=== PATIENT | female | born 1950 | race Caucasian/White ===

== ENCOUNTER → 2021-08-26 09:11 | Outpatient (CLI) | payer MEDICARE, SELFPAY ==
--- NOTE | ~2021-08-26 | MM_ITS ---
EXAMINATION: MM screening bryanna BI w parag HISTORY: Screening mammogram TECHNIQUE: Craniocaudal and mediolateral oblique 3-D tomosynthesis images were obtained and synthetic 2-D images were generated. CAD analysis was submitted and interpreted. COMPARISON: 05/11/2011 BREAST PARENCHYMAL COMPOSITION: There are scattered areas of fibroglandular density. FINDINGS: Scattered benign-appearing calcifications are present. There is no evidence of suspicious m ass, calcification, or architectural distortion to suggest malignancy in either breast. There has bee n no suspicious interval change. IMPRESSION: 1. No mammographic evidence of malignancy. 2. Recommend routine screening mammography in one year. BI-RADS Category 1: Negative Reviewed, dictated and finalized at location A. LIBRARIAN
--- NOTE | ~2021-08-26 | US_ITS ---
EXAMINATION: US abdomen complete EXAM DATE: 08/26/2021 09:43 INDICATION: Unspecified abdominal pain. TECHNIQUE: Multiple grayscale and Doppler images of the complete abdomen were obtained (by a technolo alix who performed the scan) and subsequently reviewed. Comparison is made to prior examination from 04/10/2012. FINDINGS: The abdominal aorta is normal in caliber. Visualized portion IVC is patent. The pancreatic head a nd body are normal in appearance. The pancreatic tail is not visualized. The liver has normal echogenicity and contour. There are no focal liver lesions identified. There is no evidence of intrahepatic biliary duct dilation. Portal venous flow was seen in the hepatopedal , normal direction and has normal Doppler waveform. Common bile duct measures 4 mm, which is normal. The gallbladder fossa is unremarkable. Right kidney: There is normal contour and echogenicity. It measures 8.1 x 4.3 x 4.8 centimeters. T here are no focal renal lesions identified. There is no hydronephrosis. Left kidney: There is normal contour and echogenicity. It measures 8.6 x 5.4 x 4.5 centimeters. Th ere are no focal renal lesions identified. There is no hydronephrosis. The spleen measures 9.6 centimeters and is morphologically normal. IMPRESSION: 1. Unremarkable complete abdominal ultrasound exam. Reviewed, dictated and finalized at location B. TICS LOADER
== END ==
PROVIDERS: PCP Physician Assistant; Visit Provider Physician Assistant
DX: Z12.31 Encounter for screening mammogram for malignant neoplasm of breast (principal); R10.9 Unspecified abdominal pain
CPT/HCPCS: 76700; 77063; 77067

== ENCOUNTER 2021-09-15 11:48 | Inpatient (IN) | payer MEDICARE, SELFPAY ==
[2021-09-15] VITALS (41 sets, daily range): BP systolic 136–163; BP diastolic 78–100; PULSE 75–95; RESP 16–29; TEMP 36.4–36.7; O2SAT 90–100; BMI 31.8
--- NOTE | ~2021-09-15 | CT_ITS ---
EXAMINATION: CTA chest PE protocol DATE: 09/15/2021 13:48 INDICATION: Shortness of breath, COVID 19 positive TECHNIQUE: Computed tomography angiography (CTA) of the chest was performed with 100 mL Omnipaque-350 intravenous contrast timed to evaluate the pulmonary arteries. Coronal maximum intensity projection 3D-reconstructions were created by the technologist. The dose-length product (DLP) was 369.57 mGy-cm. Automated exposure control and iterative reconstruction technique were employed. COMPARISON: None. FINDINGS: The pulmonary arteries are well-opacified. No pulmonary embolism is identified. There are d iffuse groundglass opacities throughout all lung zones. No pleural effusion or pneumothorax is identi fied. No pathologically enlarged thoracic lymph nodes are identified. The heart size is normal. Calci fied mediastinal lymph nodes are consistent with old granulomatous disease. There is moderate thoraci c spondylosis. The gallbladder is surgically absent. There is a 1.5 cm soft tissue density mass of th e left adrenal gland. IMPRESSION: 1. No pulmonary embolus identified. 2. Findings consistent with COVID 19 pneumonia. 3. 1.5 cm left adrenal mass, likely an adenoma in the absence of known malignancy. Consider follow-up adrenal CT in 12 months. Reviewed, dictated and finalized at location A. PERSON IMPRESSION: 1. No pulmonary embolus identified. 2. Findings consistent with COVID 19 pneumonia. 3. 1.5 cm left adrenal mass, likely an adenoma in the absence of known malignan cy. Consider follow-up adrenal CT in 12 months.
--- NOTE | ~2021-09-15 | XR_ITS ---
EXAMINATION: XR chest 1V portable INDICATION: Shortness of breath, COVID 19 TECHNIQUE: Portable AP chest at 1225 hours COMPARISON: 02/01/2005 FINDINGS: There are patchy airspace opacities throughout the lungs with a mid and lower lung zone pre dominance. The cardiomediastinal silhouette is normal. There is no pleural effusion or pneumothorax. The visualized osseous structures are unremarkable. IMPRESSION: 1. Patchy bilateral airspace opacities, likely pneumonia. Reviewed, dictated and finalized at location A. TER ELEMENT REPAIRER
--- NOTE | ~2021-09-15 | US_ITS ---
EXAMINATION: US venous doppler [facility] DATE: 09/15/2021 14:18 INDICATION: COVID positive with shortness of breath and elevated d-dimer TECHNIQUE: Grayscale ultrasound images without and with compression and Doppler ultrasound images of the bilateral lower extremity veins were obtained. COMPARISON: None. FINDINGS: The visualized portions of right common femoral vein, profunda (deep) femoral vein, femoral vein, pop liteal vein, posterior tibial veins, peroneal veins, gastrocnemius vein and greater saphenous vein ou tflow are patent. The visualized portions of left common femoral vein, profunda femoral vein, femoral vein, popliteal v ein, posterior tibial veins, peroneal veins, gastrocnemius vein and greater saphenous vein outflow ar e patent. IMPRESSION: 1. No deep venous thrombosis in either lower limb. Reviewed, dictated and finalized at location B. L BONDING PRESS OPERATOR
[2021-09-15 11:56] LABS: Glucose Point of Care 468 mg/dl (65-105)
--- NOTE | 2021-09-15 12:15 | ECG_ITS ---
Measurements Intervals [place] Rate: 86 P: [place]: 0 QRS: -47 QRSD: 148 T: 105 QT: 411 QTc: 493 Interpretive Statements SINUS RHYTHM LEFT AXIS DEVIATION LEFT BUNDLE BRANCH BLOCK ABNORMAL ECG Electronically Signed On 09-15-2021 13:13:21 AIR OPERATIONS MANAGER by Glen Hollis D.O.
--- NOTE | 2021-09-15 13:00 | ED.SOB ---
HPI - SOB/Dyspnea General Chief Complaint: Shortness of Breath/Dyspnea <Heather Nguyen PA-C - Last Filed: 09/15/21 16:44> Stated Complaint: CP <Heather Nguyen PA-C - Last Filed: 09/15/21 16:44> Time Seen by Provider: 09/15/21 12:13 <Heather Nguyen PA-C - Last Filed: 09/15/21 16:44> Source: patient <Heather Nguyen PA-C - Last Filed: 09/15/21 16:44> Mode of arrival: EMS <Heather Nguyen PA-C - Last Filed: 09/15/21 16:44> Limitations: no limitations <Heather Nguyen PA-C - Last Filed: 09/15/21 16:44> History of Present Illness HPI Narrative: This is a 71 year old female that presents to the ER for shortness of breath ongoing over the last couple of days. Associated with cough. Reports she is currently Covid positive. She has had symptoms for about 2 weeks. Denies fever, chest pain, or lower extremity edema. <Heather Nguyen PA-C - Last Filed: 09/15/21 16:44> Related Data Allergies/Adverse Reactions: Allergies Allergy/AdvReac Type Severity Reaction Status Date / Time Sulfa (Sulfonamide Allergy Unknown Verified 09/10/15 07:12 Antibiotics) SULFAMETHOXAZOLE (Generic Allergy Unknown Y Uncoded 08/05/19 13:43 Allergy) <Heather Nguyen PA-C - Last Filed: 09/15/21 16:44> Review of Systems Review of Systems: CONSTITUTIONAL: Denies fever, CARDIOVASCULAR: Denies chest pain, or edema. RESPIRATORY: Reports cough and dyspnea. <Heather Nguyen PA-C - Last Filed: 09/15/21 16:44> All systems reviewed & are unremarkable except as noted in HPI and below <Heather Nguyen PA-C - Last Filed: 09/15/21 16:44> PMFSH Past Medical History Medical History: Medical History (Updated 09/15/21 @ 16:43 by Heather Nguyen PA-C) History of diabetes mellitus History of hypertension <Heather Nguyen PA-C - Last Filed: 09/15/21 16:44> Family History Family History: Family History (Updated 06/05/14 @ 07:13 by DOCTOR UNKNOWN) Sibling Carcinoma of colon Father Family history of heart disease in male family member before age 55 Grandparent Family history of heart disease in male family member before age 55 <Heather Nguyne PA-C - Last Filed: 09/15/21 16:44> Social History Social History: Social History Smoking status: Never smoker Alcohol intake: never <Heather Nguyen PA-C - Last Filed: 09/15/21 16:44> Exam Narrative: GENERAL: Well-appearing, well-nourished, and in no acute distress. HEAD: Normocephalic, atraumatic. EYES: EOMI. CHEST: Rales noted in the lung bases. No respiratory distress. No wheezes or rhonchi HEART: Regular rate and rhythm. No murmur heard. Normal peripheral pulses. EXTREMITIES: Normal range of motion. No edema. SKIN: Warm, dry, no rash. NEURO: No focal deficits. Alert and oriented x3. PSYCH: Normal mood and affect <Heather Nguyen PA-C - Last Filed: 09/15/21 16:44> Course AIRFIELD SERVICES OFFICER/PA Physician Supervision I did not see this patient but the care plan was discussed with me. I agree with the documentation as above <Chris Cantor MD - Last Filed: 09/15/21 17:38> Consultations Consultation #1: Spoke with hospitalist about patient and workup who accepts admission <Heather Nguyen PA-C - Last Filed: 09/15/21 16:44> Date: 09/15/21 <Heather Nguyen PA-C - Last Filed: 09/15/21 16:44> Vital Signs Vital signs: Vital Signs Pulse Rate 95 09/15/21 11:45 Respiratory Rate 22 H 09/15/21 11:45 Blood Pressure 163/100 H 09/15/21 11:45 Pulse Oximetry 92 09/15/21 11:45 Temperature 36.7 C 09/15/21 12:38 Pulse Rate 95 09/15/21 11:45 Respiratory Rate 22 H 09/15/21 11:45 Blood Pressure 163/100 H 09/15/21 11:45 Pulse Oximetry 92 09/15/21 11:45 <Heather Nguyen PA-C - Last Filed: 09/15/21 16:44> Vital Signs Pulse Rate 95 09/15/21 11:45 Respiratory Rate 22 H 09/15/21 11:45 Blood Pressure 163/100 H 09/15/21 11:45 Pulse Oximetry 92 09/15/21 11:45
[2021-09-15 13:02] LABS: Basophils Percent Auto 0.4 % (0.2-1.2); Eosinophils Absolute Auto 0.1 K/mm3 (0-0.3); Eosinophils Percent Auto 0.6 % (0-4.4); Hematocrit 40.3 % (37.0-47.0); Hemoglobin 14.3 g/dL (12.0-15.0); Immature Granulocyte Absolute 0.08 K/mm3 (0.00-0.031); Immature Granulocyte Percent A 0.9 % (0-0.5); Lymphocytes Absolute Auto 1.48 K/mm3 (0.9-3.2); Lymphocytes Percent Auto 17.3 % (18.3-44.2); Mean Corpuscular HGB Conc 35.5 g/dl (32-36); Mean Corpuscular Hemoglobin 31.7 pg (26-34); Mean Corpuscular Volume 89.4 fl (80-100); Mean Platelet Volume 11.6 fl (7.4-10.4); Monocytes Absolute Auto 0.8 K/mm3 (0.1-0.6); Monocytes Percent Auto 9.5 % (2.6-8.5); Neutrophils Absolute Auto 6.1 K/mm3 (1.3-6.7); Neutrophils Percent Auto 71.3 % (45.5-73.1); Platelet Count Result 185 k/mm3 (150-375); Red Blood Count 4.51 M/mm3 (4.2-5.4); Red Cell Distribution Width 11.5 % (11.5-14.5); White Blood Count 8.6 K/mm3 (4.5-10.0)
[2021-09-15 13:16] LABS: Lactic Acid Reflex 1.7 mmol/L (0.7-2.1)
[2021-09-15 13:18] LABS: Alanine Aminotransferase 41 U/L (4-35); Albumin Level 4.4 g/dL (3.5-5.1); Alkaline Phosphatase 162 U/L (38-126); Anion Gap 11 mmol/L (8-16); Aspartate Amino Transferase 51 U/L (14-36); Bilirubin,Total 1.1 mg/dL (0.2-1.3); Blood Urea Nitrogen 12 mg/dL (7-17); CRP 8.6 mg/dL (<1.0); Calcium 9.1 mg/dL (8.4-10.2); Carbon Dioxide 25 mmol/L (22-30); Chloride 91 mmol/L (98-107); Estimated Glomerular Filt Rate > 60; Glucose 489 mg/dL (65-110); INR 0.9; Lactate Dehydrogenase 1006 U/L (313-618); Potassium 3.6 mmol/L (3.4-5.0); Prothrombin Time 12.3 Seconds (11.1-14.7); Sodium 127 mmol/L (137-145)
[2021-09-15 13:19] LABS: Partial Thromboplastin Time 26.2 SECONDS (22.3-36.8)
[2021-09-15 13:22] LABS: D Dimer 1.19 ug/mL (<0.48)
[2021-09-15 13:30] LABS: Troponin I < 0.012 ng/mL (0.000-0.034)
[2021-09-15] MEDS: INSULIN HUMAN REGULAR (*BKC) 100 UNITS/ML 8 UNITS IV PUSH (17:18)
[2021-09-15] MEDS: DEXAMETHASONE 2 MG TABLET 6 MG PO (17:22)
[2021-09-15] MEDS: REMDESIVIR 200 MG/NS 250 ML 200 MG/250 ML BAG 250 MG IVPB (17:24)
--- NOTE | 2021-09-15 21:30 | PM.IMHP ---
H&P: HPI History of Present Illness Date/Time: 09/15/21 21:30 this is a 71-year-old female patient and she has had increasing shortness of breath ongoing for the last couple days. She has also had a cough. The patient has had these symptoms for approximately 2 weeks. The patient is currently on oxygen at 1 L per nasal cannula. She does not typically wear oxygen. She currently does not have any fever chills or in any lower extremity edema. Her blood sugars 489. Her ferritin is 617. Her AST is 51 ALT is 41 alkaline phosphatase 162 lactic dehydrogenase a 1006. Venous Dopplers no deep vein thrombosis identified. Findings consistent with COVID-19 pneumonia. 1.5 cm left adrenal mass, likely an adenoma in the absence of known malignancy. Consider follow-up adrenal CT in 12 months. I explained this to the patient and she agreed to follow-up in 12 months. Chest x-ray was read as patchy bilateral airspace opacities likely pneumonia. The patient was started on remdesivir and Decadron. She was given IV insulin in the emergency room. Her blood sugar was 489. Ferritin 617. AST 51. ALT 41. Alkaline phosphatase 162. Lactic dehydrogenase 1006. C reactive protein 8.6. Patient is being admitted to observation status on 09/15/2021. Chief Complaint: Shortness of breath Review of Systems Review of Systems: All systems reviewed & are unremarkable except as noted in HPI and below Constitutional: Constitutional: Reports as per HPI and Reports no additional constitutional complaints Eyes: Eyes: Reports as per HPI and Reports no additional eye complaints ENT: Reports system reviewed and no additional complaints, except as documented and Reports Normal hearing present Cardiovascular: Cardiovascular: Reports no additional cardiovascular complaints Respiratory: Respiratory: Reports no additional respiratory complaints and Reports no additional respiratory complaints Gastrointestinal: Gastrointestinal: Reports as per HPI and Reports no additional gastrointestinal complaints Musculoskeletal: Musculoskeletal: Reports no additional musculoskeletal complaints Integumentary/Breasts: Skin/Breast: Reports system reviewed and no additional complaints, except as docu and Reports as per HPI Neurologic: Reports system reviewed and no additional complaints, except as documented, Reports as per HPI and Reports Normal hearing present Psychiatric: Psychiatric: Reports no additional psychiatric complaints and Reports as per HPI Endocrine: Endocrine: Reports no additional endocrine complaints Hematologic/Lymphatic: Hematologic/Lymphatic: Reports no additional hematologic/lymphatic complaints Allergic/Immunologic: Allergic/Immunologic: Reports no additional allergic/immunologic complaints PMFSH Past Medical History Medical History (Updated 09/15/21 @ 21:41 by Toya Richardson NP) Diabetes mellitus History of diabetes mellitus History of hypertension Hypertension Surgical History Surgical History (Updated 09/15/21 @ 21:42 by Toya Richardson NP) H/O: hysterectomy Hx of cholecystectomy Family History Family History Sibling Carcinoma of colon Father Family history of heart disease in male family member before age 55 Grandparent Family history of heart disease in male family member before age 55 Social History Social History (Updated 09/15/21 @ 21:43 by Toya Richardson NP) Social History: The patient lives with her . Her daughter and son-in-law are currently living with them as well. Her is the durable power prosecuting attorney for healthcare. She has 3 children. 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 She is a lifelong nonsmoker. She does not use any alcohol marijuana illicit drugs. Code status full code Smoking status: Never smoker Alcohol intake: never Substance use: never Substance use type: marijuana Other substance usage details: medical marijuana card Spiritual
[2021-09-15 21:45] LABS: Glucose Point of Care 346 mg/dl (65-105)
[2021-09-15 21:45] LABS: Glucose Point of Care 404 mg/dl (65-105)
--- NOTE | 2021-09-15 22:03 | PC.NURSE ---
Re-checked pt's blood sugar prior to transfer to floor. FSBS 404. Toya Richardson TRANSLITERATOR was paged. Upon return call, Debra GREER verbally ordered 6 units SubQ Novolog and 10 units SubQ Lantus. Order was read back and verified. Per ZOEY Richardson, pt okay to go to the floor after insulin administration.
[2021-09-15] MEDS: INSULIN ASPART (*BKC) 100 UNITS/ML 6 UNITS SUB-Q (22:36)
[2021-09-15] MEDS: INSULIN GLARGINE (*BKC) 100 UNITS/ML 10 UNITS SUB-Q (22:39)
--- NOTE | 2021-09-15 22:48 | PC.NURSE ---
This patient, Raphael Ospina, was admitted to [facility] Surg Room 326-01. Patient/family oriented to hospital policies and general routines including ID bracelet, bed and alarms, visiting hours, pain management, procedures, bathroom and other care routines, personal items, smoking policy, room service/diet, and visiting hours. Information on how to activate the Rapid Response Team has been discussed. Patient/Family are encouraged to report perceived risks to care and to ask questions if they do not understand what they are told or what they should do.
[2021-09-16 00:43] LABS: Glucose Point of Care 398 mg/dl (65-105)
[2021-09-16] MEDS: ACETAMINOPHEN 500 MG TABLET 1000 MG PO ×2 (01:58→12:33)
[2021-09-16] MEDS: INSULIN ASPART (*BKC) 100 UNITS/ML 12 UNITS SUB-Q ×3 (01:58→20:30)
[2021-09-16 06:00] VITALS: BP 135/67; PULSE 69; RESP 16; TEMP 35.5; O2SAT 93
[2021-09-16 06:02] LABS: Glucose Point of Care 292 mg/dl (65-105)
[2021-09-16 07:25] LABS: Basophils Percent Auto 0.1 % (0.2-1.2); Hematocrit 37.9 % (37.0-47.0); Hemoglobin 13.4 g/dL (12.0-15.0); Immature Granulocyte Absolute 0.04 K/mm3 (0.00-0.031); Immature Granulocyte Percent A 0.6 % (0-0.5); Lymphocytes Absolute Auto 1.15 K/mm3 (0.9-3.2); Lymphocytes Percent Auto 16.6 % (18.3-44.2); Mean Corpuscular HGB Conc 35.4 g/dl (32-36); Mean Corpuscular Hemoglobin 31.2 pg (26-34); Mean Corpuscular Volume 88.1 fl (80-100); Mean Platelet Volume 11.1 fl (7.4-10.4); Monocytes Absolute Auto 0.4 K/mm3 (0.1-0.6); Monocytes Percent Auto 5.5 % (2.6-8.5); Neutrophils Absolute Auto 5.4 K/mm3 (1.3-6.7); Neutrophils Percent Auto 77.2 % (45.5-73.1); Platelet Count Result 210 k/mm3 (150-375); Red Cell Distribution Width 11.2 % (11.5-14.5); White Blood Count 6.9 K/mm3 (4.5-10.0)
[2021-09-16 07:40] LABS: Lactic Acid Reflex 1.2 mmol/L (0.7-2.1)
[2021-09-16 07:42] LABS: Alanine Aminotransferase 40 U/L (4-35); Albumin Level 4.1 g/dL (3.5-5.1); Alkaline Phosphatase 135 U/L (38-126); Anion Gap 7 mmol/L (8-16); Aspartate Amino Transferase 42 U/L (14-36); Bilirubin,Total 0.6 mg/dL (0.2-1.3); Blood Urea Nitrogen 16 mg/dL (7-17); Calcium 9.1 mg/dL (8.4-10.2); Carbon Dioxide 27 mmol/L (22-30); Chloride 97 mmol/L (98-107); Estimated CRCL calculation 56 ml/min; Estimated Glomerular Filt Rate > 60; Glucose 322 mg/dL (65-110); Lactate Dehydrogenase 836 U/L (313-618); Magnesium 2.1 mg/dL (1.6-2.3); Potassium 3.9 mmol/L (3.4-5.0); Sodium 131 mmol/L (137-145)
[2021-09-16 07:44] LABS: INR 1.1; Prothrombin Time 13.9 Seconds (11.1-14.7)
[2021-09-16 08:00] VITALS: BP 131/70; PULSE 78; RESP 18; TEMP 36.5; O2SAT 90; O2SAT 93
[2021-09-16 08:08] LABS: Glucose Point of Care 321 mg/dl (65-105)
[2021-09-16] MEDS: OLMESARTAN MEDOXOMIL 20 MG TABLET 40 MG PO (08:19)
[2021-09-16] MEDS: INSULIN ASPART (*BKC) 100 UNITS/ML SUB-Q ×2 (08:19→12:29)
[2021-09-16] MEDS: hydroCHLOROthiazide 12.5 MG CAPSULE PO (08:20)
[2021-09-16] MEDS: DEXAMETHASONE 2 MG TABLET 6 MG PO (08:20)
[2021-09-16 08:59] LABS: Hemoglobin A1C 10.2 % (<5.7)
[2021-09-16] MEDS: REMDESIVIR 100 MG/NS 250 ML 100 MG/250 ML BAG 250 MG IVPB (10:43)
[2021-09-16 12:00] VITALS: BP 144/71; PULSE 80; RESP 18; TEMP 36.8; O2SAT 90
[2021-09-16 12:23] LABS: Glucose Point of Care 355 mg/dl (65-105)
[2021-09-16 14:00] VITALS: BP 151/76; PULSE 87; RESP 18; TEMP 37.1; O2SAT 92
--- NOTE | 2021-09-16 14:35 | PM.IMPN ---
Progress Note: A&P Assessment and Plan (1) 2019 novel coronavirus-infected pneumonia (NCIP): Code(s): U07.1 - COVID-19; J12.82 - Pneumonia due to coronavirus disease 2019 Status: Acute Assessment and Plan: Continue with Decadron and remdesivir Monitor liver and kidney function Supportive care (2) Diabetes mellitus: Qualifiers: Diabetes mellitus complication status: with hyperglycemia Diabetes mellitus halfway insulin use: with exterminator use Diabetes mellitus type: type 2 Qualified Code(s): E11.65 - Type 2 diabetes mellitus with hyperglycemia; Z79.4 - jail (current) use of insulin Code(s): E11.9 - Type 2 diabetes mellitus without complications Status: Chronic Assessment and Plan: Uncontrolled Hgb A1c 10.2 Hold metformin as the patient, elevated liver enzymes Sliding scale insulin with Accu-Cheks AC and HS Monitor (3) Hypertension: Code(s): I10 - Essential (primary) hypertension Status: Chronic Assessment and Plan: Continue home Benicar P.r.n. hydralazine Monitor (4) Adenoma of left adrenal gland: Code(s): D35.02 - Benign neoplasm of left adrenal gland Status: Acute Assessment and Plan: Patient is to follow up outpatient for CT scan Subjective Date/time seen: 09/16/21 14:35 Interval history: Pt seen today; labs, vs, diagnostic tests reviewed; denies any CP or worsening SOB Review of Systems Review of Systems: All systems reviewed & are unremarkable except as noted in HPI and below Exam Const: General: no acute distress, alert and awake Orientation/consciousness: patient oriented x3 HENMT: Head: normocephalic and atraumatic Ears: hearing grossly normal bilaterally and external ears normal Face and sinus: face symmetric Mouth: Yes Normal oral and palatal mucosa present Eyes: EOM: EOMs intact bilaterally Neck: Neck: full ROM, trachea midline and no JVD Chest: Chest palpation & inspection: normal inspection of the chest Resp: Effort & Inspection: normal respiratory effort Cardio: Jugular venous distension: no JVD Rate: regular rate Rhythm: regular rhythm Heart sounds: S1 normal heart sound present and S2 normal heart sound present GI: Inspection: obesity GI Palp: Yes Soft to palpation Auscultation: normal bowel sounds : General: Yes no CVA tenderness Skin: General skin exam: normal color Rashes: no rashes Neuro: General: patient oriented x3 and moves all extremities Speech: normal speech Extrem: General: no clubbing, cyanosis or edema Psych: Appearance: grossly normal Affect: normal affect Judgement: Good judgement present (Psych) Objective Data Vital Signs Vital Signs: Vital Signs - 24 hr 09/15/21 14:45 09/15/21 14:58 09/15/21 15:00 Temperature Pulse Rate 88 87 Respiratory Rate 24 H 28 H Blood Pressure 144/92 H Pulse Oximetry 93 97 96 09/15/21 15:01 09/15/21 15:15 09/15/21 15:16 Temperature Pulse Rate 86 77 85 Respiratory Rate 22 H 22 H 21 H Blood Pressure 136/86 147/88 H Pulse Oximetry 96 99 98 09/15/21 15:30 09/15/21 15:31 09/15/21 15:59 Temperature Pulse Rate 85 86 Respiratory Rate 22 H 21 H Blood Pressure 144/90 H Pulse Oximetry 99 97 90 09/15/21 16:00 09/15/21 16:23 09/15/21 16:30 Temperature Pulse Rate Respiratory Rate Blood Pressure Pulse Oximetry 90 94 95 09/15/21 16:45 09/15/21 17:04 09/15/21 17:19 Temperature Pulse Rate Respiratory Rate Blood Pressure Pulse Oximetry 96 93 100 09/15/21 17:29 09/15/21 17:30 09/15/21 17:45 Temperature Pulse Rate 89 89 85 Respiratory Rate 29 H 26 H 24 H Blood Pressure 162/95 H Pulse Oximetry 94 94 96 09/15/21 18:00 09/15/21 18:15 09/15/21 18:30 Temperature Pulse Rate 93 83 82 Respiratory Rate 18 22 H 19 Blood Pressure Pulse Oximetry 96 96 09/15/21 18:45 09/15/21 19:00 09/15/21 19:01 Temperature Pulse Rate 84 81 83 Respiratory R
[2021-09-16] MEDS: SODIUM CHLORIDE 0.9% IV 1,000 ML 80 ML IV CONT (17:25)
[2021-09-16 17:30] LABS: Glucose Point of Care 440 mg/dl (65-105)
[2021-09-16 20:00] VITALS: O2SAT 95
[2021-09-16 20:03] LABS: Glucose Point of Care 450 mg/dl (65-105)
[2021-09-16] MEDS: INSULIN GLARGINE (*BKC) 100 UNITS/ML 30 UNITS SUB-Q (20:31)
[2021-09-16 21:42] VITALS: BP 154/82; PULSE 88; RESP 18; TEMP 37.2; O2SAT 92
[2021-09-16 23:29] LABS: Glucose Point of Care 361 mg/dl (65-105)
[2021-09-17 00:08] VITALS: BP 136/71; PULSE 71; RESP 18; TEMP 36.1; O2SAT 95
[2021-09-17] MEDS: INSULIN ASPART (*BKC) 100 UNITS/ML 10 UNITS SUB-Q (00:23)
[2021-09-17 04:46] VITALS: BP 138/71; PULSE 67; RESP 16; TEMP 35.8; O2SAT 93
[2021-09-17 06:52] LABS: Glucose Point of Care 304 mg/dl (65-105)
[2021-09-17 08:00] VITALS: BP 152/78; PULSE 74; RESP 18; TEMP 35.8; O2SAT 93; O2SAT 94
[2021-09-17 08:04] LABS: INR 1.2; Prothrombin Time 15.1 Seconds (11.1-14.7)
[2021-09-17 08:05] LABS: Alanine Aminotransferase 35 U/L (4-35); Estimated CRCL calculation 56 ml/min; Estimated Glomerular Filt Rate > 60
[2021-09-17 08:35] LABS: Glucose Point of Care 301 mg/dl (65-105)
[2021-09-17] MEDS: DEXAMETHASONE 2 MG TABLET 6 MG PO (09:01)
[2021-09-17] MEDS: INSULIN ASPART (*BKC) 100 UNITS/ML SUB-Q ×5 (09:01→17:49)
[2021-09-17] MEDS: ENOXAPARIN 40 MG/0.4 ML SYRINGE SUB-Q (09:02)
[2021-09-17 10:09] LABS: Alanine Aminotransferase 35 U/L (4-35); Albumin Level 3.5 g/dL (3.5-5.1); Alkaline Phosphatase 115 U/L (38-126); Anion Gap 7 mmol/L (8-16); Aspartate Amino Transferase 33 U/L (14-36); Bilirubin,Total 0.4 mg/dL (0.2-1.3); Blood Urea Nitrogen 21 mg/dL (7-17); Calcium 8.7 mg/dL (8.4-10.2); Carbon Dioxide 22 mmol/L (22-30); Chloride 102 mmol/L (98-107); Estimated CRCL calculation 56 ml/min; Estimated Glomerular Filt Rate > 60; Glucose 318 mg/dL (65-110); Lactate Dehydrogenase 766 U/L (313-618); Sodium 131 mmol/L (137-145)
[2021-09-17] MEDS: REMDESIVIR 100 MG/NS 250 ML 100 MG/250 ML BAG 250 MG IVPB (10:41)
[2021-09-17 12:00] VITALS: BP 153/75; PULSE 79; RESP 16; TEMP 36.4; O2SAT 95
[2021-09-17 12:35] LABS: Glucose Point of Care 286 mg/dl (65-105)
--- NOTE | 2021-09-17 13:53 | PM.IMPN ---
Progress Note: A&P Assessment and Plan (1) 2019 novel coronavirus-infected pneumonia (NCIP): Code(s): U07.1 - COVID-19; J12.82 - Pneumonia due to coronavirus disease 2018 Status: Acute Assessment and Plan: Tested positive for COVID 09/06/2021. CXR shows patchy bilateral airspace opacities, and CTA shows findings consistent with COVID-19 pneumonia. Continue IV dexamethasone and remdesivir (dose #3). ALT is within normal limits She has required up to 2 L supplemental O2 per nasal cannula. Currently requiring 1 L and maintaining adequate O2 sats Supportive care to include bronchodilators, expectorants, antipyretics, incentive spirometry Trend acute phase reactants The patient has not been vaccinated for COVID-19 Continue isolation precautions (2) Diabetes mellitus: Qualifiers: Diabetes mellitus complication status: with hyperglycemia Diabetes mellitus intermediate accountant insulin use: with intermediate accountant use Diabetes mellitus type: type 2 Qualified Code(s): E11.65 - Type 2 diabetes mellitus with hyperglycemia; Z79.4 - intermediate teacher (current) use of insulin Code(s): E11.9 - Type 2 diabetes mellitus without complications Status: Chronic Assessment and Plan: Poorly controlled. A1c is 10.2. Continue Accu-Cheks, sliding scale insulin, hypoglycemic protocol Started on Lantus 30 units qHS Add NovoLog scheduled with meals 4 units t.i.d. Monitor blood sugar trends and adjust treatment as needed Discussed with the patient that given her elevated A1c, she will need additional therapy with her metformin, possibly consider starting on insulin. She states that she does not want to make any changes at this time and she has a follow-up appointment with her PCP next week to implement medication changes I spoke with her PCP who reports poor compliance to medication regimen. Recommends addition of glimepiride 1 mg BID on discharge if patient is agreeable and prompt follow up (3) Hypertension: Code(s): I10 - Essential (primary) hypertension Status: Chronic Assessment and Plan: Blood pressure has been reasonably controlled, slightly elevated. Last BP 153/75 Continue olmesartan-hydrochlorothiazide. Monitor BP trends and adjust medication regimen as needed (4) Adenoma of left adrenal gland: Code(s): D35.02 - Benign neoplasm of left adrenal gland Status: Acute Assessment and Plan: Incidental finding on CTA scan. She will need to follow-up with PCP, consider follow-up adrenal CT in 1 year Subjective Date/time seen: 09/17/21 13:53 Interval history: Date of service: 09/17/2021 Raphael Ospina is a 71-year-old female with a history of type 2 diabetes mellitus and hypertension who is seen in follow-up for COVID-19 pneumonia. She is feeling better today. She continues to endorse shortness of breath, but states it is significantly improved. Denies conversational dyspnea. Denies SMITH. She endorses nonproductive cough. She did note that when she got up to walk to the bathroom today, she felt slightly lightheaded. She denies dizziness. Denies fevers, chills, sweats, nausea, vomiting, diarrhea. No abdominal pain. Appetite is good. No anosmia or dysgeusia. Review of Systems Review of Systems: All systems reviewed & are unremarkable except as noted in HPI and below Exam Narrative: Ms. Ospina is a well-nourished, well-appearing 71-year-old female who is lying semi recumbent in bed. She appears comfortable and is in NARD. Neuro: awake, alert and oriented x4, speech clear, no focal neuro deficits noted HEENMT: normocephalic, atraumatic, EOMI, sclerae anicteric, wearing eyeglasses Neck: supple, no lymphadenopathy Respiratory: Diminished breath sounds bilaterally without crackles, rhonchi, or wheezes, nonlabored breathing Cardio: regular rate, regular rhythm with S1-S2 Abdomen: nondistended, normoactive bowel sounds, soft, nontender to palpation E
[2021-09-17 16:00] VITALS: BP 162/85; PULSE 80; RESP 16; TEMP 36.5; O2SAT 93
[2021-09-17 18:05] LABS: Glucose Point of Care 424 mg/dl (65-105)
[2021-09-17 18:58] LABS: Glucose Point of Care 437 mg/dl (65-105)
[2021-09-17 20:00] VITALS: BP 169/86; PULSE 85; RESP 16; TEMP 36.6; O2SAT 93; O2SAT 95
[2021-09-17] MEDS: LACTATED RINGERS 1,000 ML 80 ML IV CONT (20:03)
[2021-09-17] MEDS: INSULIN ASPART (*BKC) 100 UNITS/ML 15 UNITS SUB-Q (20:03)
[2021-09-17] MEDS: hydrALAZINE HCL 20 MG/ML VIAL 10 MG IV PUSH (23:11)
[2021-09-17] MEDS: INSULIN GLARGINE (*BKC) 100 UNITS/ML 30 UNITS SUB-Q (23:13)
[2021-09-17] MEDS: guaiFENesin 12 HR 600 MG TABCR PO (23:14)
[2021-09-18] VITALS: BP 133/68; PULSE 74; RESP 18; TEMP 36.2; O2SAT 93
[2021-09-18 03:30] LABS: Glucose Point of Care 218 mg/dl (65-105)
[2021-09-18 04:00] VITALS: BP 129/71; PULSE 70; RESP 18; TEMP 36.3; O2SAT 93
[2021-09-18 07:36] LABS: Hematocrit 36.5 % (37.0-47.0); Hemoglobin 12.7 g/dL (12.0-15.0); Mean Corpuscular HGB Conc 34.8 g/dl (32-36); Mean Corpuscular Hemoglobin 30.9 pg (26-34); Mean Corpuscular Volume 88.8 fl (80-100); Mean Platelet Volume 11.3 fl (7.4-10.4); Platelet Count Result 245 k/mm3 (150-375); Red Blood Count 4.11 M/mm3 (4.2-5.4); Red Cell Distribution Width 11.7 % (11.5-14.5); White Blood Count 13.4 K/mm3 (4.5-10.0)
[2021-09-18 07:49] LABS: INR 1.1; Prothrombin Time 13.8 Seconds (11.1-14.7)
[2021-09-18 07:58] LABS: Alanine Aminotransferase 30 U/L (4-35); Anion Gap 7 mmol/L (8-16); Blood Urea Nitrogen 22 mg/dL (7-17); CRP 2.4 mg/dL (<1.0); Calcium 8.7 mg/dL (8.4-10.2); Carbon Dioxide 22 mmol/L (22-30); Chloride 104 mmol/L (98-107); Estimated CRCL calculation 56 ml/min; Estimated Glomerular Filt Rate > 60; Glucose 217 mg/dL (65-110); Lactate Dehydrogenase 714 U/L (313-618); Potassium 3.4 mmol/L (3.4-5.0); Sodium 133 mmol/L (137-145)
[2021-09-18 08:00] VITALS: BP 157/82; PULSE 83; RESP 22; TEMP 36.7; O2SAT 92; O2SAT 95
[2021-09-18 08:00] LABS: Glucose Point of Care 203 mg/dl (65-105)
[2021-09-18] MEDS: INSULIN ASPART (*BKC) 100 UNITS/ML 10 UNITS SUB-Q ×3 (08:35→17:06)
[2021-09-18] MEDS: INSULIN ASPART (*BKC) 100 UNITS/ML SUB-Q ×2 (08:35→17:06)
[2021-09-18] MEDS: INSULIN GLARGINE (*BKC) 100 UNITS/ML 30 UNITS SUB-Q ×2 (08:36→21:15)
[2021-09-18] MEDS: ENOXAPARIN 40 MG/0.4 ML SYRINGE SUB-Q (08:39)
[2021-09-18] MEDS: guaiFENesin 12 HR 600 MG TABCR PO ×2 (08:40→21:15)
[2021-09-18] MEDS: DEXAMETHASONE 2 MG TABLET 6 MG PO (08:40)
[2021-09-18] MEDS: hydroCHLOROthiazide 12.5 MG CAPSULE PO (08:40)
[2021-09-18] MEDS: OLMESARTAN MEDOXOMIL 20 MG TABLET 40 MG PO (08:40)
--- NOTE | 2021-09-18 10:00 | P.PNIM_ITS ---
Progress Note: A&P Assessment and Plan (1) 2019 novel coronavirus-infected pneumonia (NCIP): Code(s): U07.1 - COVID-19; J12.82 - Pneumonia due to coronavirus disease 2019 Status: Acute Assessment and Plan: Tested positive for COVID 09/06/2021. CXR shows patchy bilateral airspace opacities, and CTA shows findings consistent with COVID-19 pneumonia. * Continue IV dexamethasone and remdesivir (dose #4 today). ALT is within normal limits * She has required up to 2 L supplemental O2 per nasal cannula and has now been weaned to room air. * If she remains on room air, will hold further remdesivir infusions for tomorrow, with hopeful discharge if no further oxygen requirements. * Supportive care to include bronchodilators, expectorants, antipyretics, incentive spirometry * Trend acute phase reactants * The patient has not been vaccinated for COVID-19 * Continue isolation precautions * She will need a home O2 eval prior to discharge (2) Diabetes mellitus: Qualifiers: Diabetes mellitus complication status: with hyperglycemia Diabetes mellitus [facility] insulin use: with [facility] use Diabetes mellitus type: type 2 Qualified Code(s): E11.65 - Type 2 diabetes mellitus with hyperglycemia; Z79.4 - rat exterminator (current) use of insulin Code(s): E11.9 - Type 2 diabetes mellitus without complications Status: Chronic Assessment and Plan: Poorly controlled. A1c is 10.2. * Continue Accu-Cheks, sliding scale insulin, hypoglycemic protocol * Started on Lantus 30 units, increased to twice daily dosing given poor glucose control with IV steroids * NovoLog 10 units t.i.d. with meals * Monitor blood sugar trends and adjust treatment as needed * I spoke with her PCP who reports poor compliance to medication regimen. Recommends addition of glimepiride 1 mg BID on discharge if patient is agreeable and prompt follow up (3) Hypertension: Code(s): I10 - Essential (primary) hypertension Status: Chronic Assessment and Plan: Blood pressure has been reasonably controlled, slightly elevated. Last BP 157/82 * Continue olmesartan-hydrochlorothiazide. * Monitor BP trends and adjust medication regimen as needed (4) Adenoma of left adrenal gland: Code(s): D35.02 - Benign neoplasm of left adrenal gland Status: Acute Assessment and Plan: Incidental finding on CTA scan. * She will need to follow-up with PCP, consider follow-up adrenal CT in 1 year Subjective Date/time seen: 09/18/21 10:00 Interval history: Date of service: 09/18/2021 Raphael Ospina is a 71-year-old female with a history of type 2 diabetes mellitus and hypertension who is seen in follow-up for COVID-19 pneumonia. She feels well today. Continues to endorse cough, no sputum production. No co nversational dyspnea or SMITH. No pleuritic chest pain. No nausea, vomiting, fever, chills, dizziness, lightheadedness. Appetite is fair, though states she did need much breakfast because it did not look very good. Review of Systems Review of Systems: All systems reviewed & are unremarkable except as noted in HPI and below Exam Narrative: Ms. Ospina is a well-nourished, well-appearing 71-year-old female who is lying semi recumbent in bed. She appears comfortable and is in NARD. Neuro: awake, alert and oriented x4, speech clear, no focal neuro deficits noted HEENMT: normocephalic, atraumatic, EOMI, sclerae anicteric, wearing eyeglasses Neck: supple, no lymphadenopathy Respiratory: Diminished b
--- NOTE | 2021-09-18 10:00 | PM.IMPN ---
Progress Note: A&P Assessment and Plan (1) 2019 novel coronavirus-infected pneumonia (NCIP): Code(s): U07.1 - COVID-19; J12.82 - Pneumonia due to coronavirus disease 2018 Status: Acute Assessment and Plan: Tested positive for COVID 09/06/2021. CXR shows patchy bilateral airspace opacities, and CTA shows findings consistent with COVID-19 pneumonia. Continue IV dexamethasone and remdesivir (dose #4 today). ALT is within normal limits She has required up to 2 L supplemental O2 per nasal cannula and has now been weaned to room air. If she remains on room air, will hold further remdesivir infusions for tomorrow, with hopeful discharge if no further oxygen requirements. 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 A1c is 10.2. Continue Accu-Cheks, sliding scale insulin, hypoglycemic protocol Started on Lantus 30 units, increased to twice daily dosing given poor glucose control with IV steroids NovoLog 10 units t.i.d. with meals Monitor blood sugar trends and adjust treatment as needed I spoke with her PCP who reports poor compliance to medication regimen. Recommends addition of glimepiride 1 mg BID on discharge if patient is agreeable and prompt follow up (3) Hypertension: Code(s): I10 - Essential (primary) hypertension Status: Chronic Assessment and Plan: Blood pressure has been reasonably controlled, slightly elevated. Last BP 157/82 Continue olmesartan-hydrochlorothiazide. Monitor BP trends and adjust medication regimen as needed (4) Adenoma of left adrenal gland: Code(s): D35.02 - Benign neoplasm of left adrenal gland Status: Acute Assessment and Plan: Incidental finding on CTA scan. She will need to follow-up with PCP, consider follow-up adrenal CT in 1 year Subjective Date/time seen: 09/18/21 10:00 Interval history: Date of service: 09/18/2021 Raphael Ospina is a 71-year-old female with a history of type 2 diabetes mellitus and hypertension who is seen in follow-up for COVID-19 pneumonia. She feels well today. Continues to endorse cough, no sputum production. No conversational dyspnea or SMITH. No pleuritic chest pain. No nausea, vomiting, fever, chills, dizziness, lightheadedness. Appetite is fair, though states she did need much breakfast because it did not look very good. Review of Systems Review of Systems: All systems reviewed & are unremarkable except as noted in HPI and below Exam Narrative: Ms. Ospina is a well-nourished, well-appearing 71-year-old female who is lying semi recumbent in bed. She appears comfortable and is in NARD. Neuro: awake, alert and oriented x4, speech clear, no focal neuro deficits noted HEENMT: normocephalic, atraumatic, EOMI, sclerae anicteric, wearing eyeglasses Neck: supple, no lymphadenopathy Respiratory: Diminished breath sounds bilaterally without crackles, rhonchi, or wheezes, nonlabored breathing Cardio: regular rate, regular rhythm with S1-S2 Abdomen: nondistended, normoactive bowel sounds, soft, nontender to palpation Extremities: no edema, erythema, or tenderness to palpation, DP pulses 2+ bilaterally Skin: no rashes or lesions, warm and dry Psych: appropriate mood and affect, judgment and insight intact Objective Data Vital
[2021-09-18] MEDS: REMDESIVIR 100 MG/NS 250 ML 100 MG/250 ML BAG 250 MG IVPB (11:04)
[2021-09-18 12:00] VITALS: BP 161/92; PULSE 73; RESP 18; TEMP 36.9; O2SAT 94
[2021-09-18 12:18] LABS: Glucose Point of Care 120 mg/dl (65-105)
[2021-09-18 16:00] VITALS: BP 130/70; PULSE 70; RESP 18; TEMP 36.6; O2SAT 95
[2021-09-18 17:00] LABS: Glucose Point of Care 223 mg/dl (65-105)
[2021-09-18 20:00] VITALS: BP 160/83; PULSE 70; RESP 18; TEMP 36.3; O2SAT 92
[2021-09-18 21:56] LABS: Glucose Point of Care 202 mg/dl (65-105)
[2021-09-19] VITALS: BP 147/83; PULSE 72; RESP 18; TEMP 36.2; O2SAT 94
[2021-09-19 04:00] VITALS: BP 141/81; PULSE 77; RESP 18; TEMP 36.6; O2SAT 93
[2021-09-19 07:28] LABS: Hematocrit 37.3 % (37.0-47.0); Mean Corpuscular HGB Conc 34.9 g/dl (32-36); Mean Corpuscular Hemoglobin 30.5 pg (26-34); Mean Corpuscular Volume 87.6 fl (80-100); Mean Platelet Volume 10.9 fl (7.4-10.4); Platelet Count Result 255 k/mm3 (150-375); Red Blood Count 4.26 M/mm3 (4.2-5.4); Red Cell Distribution Width 11.9 % (11.5-14.5); White Blood Count 12.5 K/mm3 (4.5-10.0)
[2021-09-19 07:43] LABS: Alanine Aminotransferase 29 U/L (4-35); Albumin Level 3.7 g/dL (3.5-5.1); Alkaline Phosphatase 108 U/L (38-126); Anion Gap 10 mmol/L (8-16); Aspartate Amino Transferase 34 U/L (14-36); Bilirubin,Total 0.5 mg/dL (0.2-1.3); Blood Urea Nitrogen 23 mg/dL (7-17); CRP 1.9 mg/dL (<1.0); Calcium 8.9 mg/dL (8.4-10.2); Carbon Dioxide 23 mmol/L (22-30); Chloride 102 mmol/L (98-107); Estimated CRCL calculation 50 ml/min; Estimated Glomerular Filt Rate > 60; Glucose 75 mg/dL (65-110); Potassium 3.2 mmol/L (3.4-5.0); Sodium 135 mmol/L (137-145)
[2021-09-19 07:48] LABS: INR 1.1
[2021-09-19 07:56] LABS: Glucose Point of Care 81 mg/dl (65-105)
[2021-09-19 08:42] VITALS: BP 116/59; PULSE 75; RESP 16; TEMP 36.1; O2SAT 93
[2021-09-19] MEDS: OLMESARTAN MEDOXOMIL 20 MG TABLET 40 MG PO (08:45)
[2021-09-19] MEDS: ENOXAPARIN 40 MG/0.4 ML SYRINGE SUB-Q (08:46)
[2021-09-19] MEDS: guaiFENesin 12 HR 600 MG TABCR PO (08:46)
[2021-09-19] MEDS: DEXAMETHASONE 2 MG TABLET 6 MG PO (08:46)
[2021-09-19] MEDS: hydroCHLOROthiazide 12.5 MG CAPSULE PO (08:46)
[2021-09-19 12:35] LABS: Glucose Point of Care 229 mg/dl (65-105)
[2021-09-19 12:37] VITALS: BP 155/69; PULSE 78; RESP 18; TEMP 36.2; O2SAT 97
[2021-09-19] MEDS: INSULIN ASPART (*BKC) 100 UNITS/ML 10 UNITS SUB-Q (12:38)
[2021-09-19] MEDS: INSULIN ASPART (*BKC) 100 UNITS/ML SUB-Q (12:39)
[2021-09-19] MEDS: POTASSIUM CHLORIDE 20 MEQ TABLET 40 MEQ PO (12:41)
--- NOTE | 2021-09-19 12:46 | PM.DS ---
DS: Admitting Diagnosis Discharge Date 09/19/2021 Admitting Diagnosis COVID-19 pneumonia DS: Discharge Diagnosis Discharge Diagnosis (1) 2019 novel coronavirus-infected pneumonia (NCIP): Code(s): U07.1 - COVID-19; J12.82 - Pneumonia due to coronavirus disease 2019 Status: Acute Assessment and Plan: Tested positive for COVID 09/06/2021. CXR showed patchy bilateral airspace opacities, and CTA showed findings consistent with COVID-19 pneumonia. She was treated with dexamethasone and remdesivir, which was discontinued when she had no further oxygen requirements. LFTs monitored with therapy. She required up to 2 L supplemental O2 per nasal cannula which was able to be weaned to room air. She had a walking study in which her O2 levels were monitored and she had no need for oxygen with rest or with activity. Supportive care provided including bronchodilators, expectorants, antipyretics, incentive spirometry. She has not been vaccinated for COVID-19. Discussed that she is eligible for vaccination 90 days following acute illness. 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 A1c is 10.2. Blood sugars were elevated during admission secondary to IV steroids. Did improve with regimen consisting of Lantus 30 units b.i.d. and NovoLog 10 units t.i.d. with meals. I discussed with her primary care provider via phone who reports poor compliance. Per PCP recommendation, she was started on glimepiride 1 mg b.i.d. She will need to monitor her blood sugars 3 times a day with meals and at night and record for review by PCP. Discussed hypoglycemia symptoms for which to monitor. Follow-up appointment in 1 week. Patient is agreeable and understands importance of this. (3) Hypertension: Code(s): I10 - Essential (primary) hypertension Status: Chronic Assessment and Plan: Blood pressures were for the most part reasonably controlled. Continue olmesartan-hydrochlorothiazide. (4) Adenoma of left adrenal gland: Code(s): D35.02 - Benign neoplasm of left adrenal gland Status: Acute Assessment and Plan: Incidental finding on CTA scan. She will need to follow-up with PCP, consider follow-up adrenal CT in 1 year DS: Summary Hospital Course Hospital Course: Date of admission: 09/15/2021 Date of discharge: 09/19/2021 Raphael Ospina is a 71-year-old female with a history of type 2 diabetes mellitus and hypertension who presented to the emergency department on 09/15/2021 with complaints of shortness of breath and cough after having tested positive for COVID-19. On presentation to the emergency department, her blood pressure was elevated and she was mildly tachypneic, additional vital signs stable, CBC unremarkable, BMP with sodium 127 and glucose 489, lactic 1.7, troponin negative, CXR patchy bilateral airspace opacities, CTA with no PE and findings consistent with COVID-19 pneumonia with incidental left adrenal mass, venous Doppler negative for DVT. She was admitted to the hospitalist service for further evaluation and management. She was treated for COVID-19 pneumonia with dexamethasone and remdesivir. She was able to be weaned to room air and had no further oxygen requirements. She was feeling much better and requested discharge home. Given her overall improvement, she was determined to no longer require inpatient care and was felt to be stable for discharge. We discussed worrisome signs and symptoms for which to return and she was educated on her medications. We discussed necessary COVID-19 precaut
== END 2021-09-19 14:09 | disposition home or self-care (01) | DRG 177 ==
LOC: ANHED 15:44 → ANH3MEDSUR 19:58
PROVIDERS: Nurse Practitioner; Physician Assistant; Admitting Provider Internal Medicine; Emergency Provider Emergency Medicine; PCP Physician Assistant; Visit Provider Physician Assistant
DX: U07.1 COVID-19 (principal); J12.82 Pneumonia due to coronavirus disease 2019; E11.65 Type 2 diabetes mellitus with hyperglycemia; I10 Essential (primary) hypertension; D35.02 Benign neoplasm of left adrenal gland; Z79.4 Long term (current) use of insulin; Z90.49 Acquired absence of other specified parts of digestive tract; Z90.710 Acquired absence of both cervix and uterus
CPT/HCPCS: 36415; 71045; 71275; 80048; 80053; 82565; 82728; 82948; 83036; 83605; 83615; 83735; 84443; 84460; 84484; 85025; 85027; 85380; 85610; 85730; 86140; 93005; 93970; 96365; 96366; 96375; 99291; A9270; G0378; J0360; J1650; J1815; J7030; J7120; J8540; Q9967

== ENCOUNTER → 2021-10-26 14:55 | Outpatient (REF) | payer MEDICARE, SELFPAY | LOC: ANHLAB 14:55 | PROVIDERS: PCP Physician Assistant; Visit Provider Nurse Practitioner | DX: L82.1 Other seborrheic keratosis (principal) | CPT/HCPCS: 88305 ==

== ENCOUNTER 2024-09-20 13:12 | Emergency (ER) | payer MEDICARE, SELFPAY ==
--- OUTSIDE RECORDS SUMMARY | 2024-09-20 13:19 | XMS_ITS | Data Portability ---
[facility] [address] [place] [address] Assessment No assessment recorded. Plan of Treatment Reminders Order Date Submit Date Provider Last Modified By Organization Details Last Modified Time Details Appointments None recorded. Lab HbA1c (hemoglobi n A1c), blood 2023 024 [email or web address], [address], [address], [place], [address], 4 14:19:10 microalbum in/creatin ine, mass ratio, urine 2023 024 [email or web address] [facility], [address], [place], [address], 4 14:19:04 lipid panel, serum 2023 024 [facility], [address], [place], [address], 4 14:18:35 BMP, serum or plasma 2023 024 [facility], [address], [place], [address], 4 14:19:00 CBC w/ auto diff 2023 024 [facility], [address], [place], [address], 4 14:18:55 hepatic function panel, serum 2023 024 [email or web address], [address], [address], [place], [address], 4 14:18:51 TSH + free T4, serum 2023 024 [facility], [address], [address], [place], [address], 4 14:18:42 vitamin B12 + folate, serum or blood 2023 024 [facility], [address], [address], [place], [address], 4 14:18:47 Referral None recorded. Procedures None recorded. Surgeries None recorded. Imaging MAMMO, screening, digital, bilateral [address] [facility], [address], [place], [address], 4 16:08:46 Medication Orders glimepirid e 1 mg tablet 2023 024 [facility]/Pharmacy #[id number], [address] [place], [address], 4 11:47:32 amlodipine 10 mg tablet 2023 024 [facility]/Pharmacy #[id number], [address] [place], [address], 4 12:26:10 Patient TargetsNo targets recorded. Patient InstructionsNo instructions recorded. Reason for Referral None Reported. Problems Name Problem SNOMED Code Status Onset Date Resolution Date Notes Provider Name and Address Organization Details Recorded Time Obesity 062700552 Active 2023 MALDONADO Parry Attn: Remigio armijo,[address] [facility], [place], [address], [facility] 4 10:05:32 Benign essential hypertension 5517137 Active 2023 MALDONADO Parry Attn: Accountin g,[address], [place], [address], [facility] 4 10:05:33 Uncontrolled type 2 diabetes mellitus 140606553 Active 2023 MALDONADO Parry Attn: Accountin g,[address] [facility], [place], [address], [facility] 4 10:05:34 Long-term drug therapy Active 2023 MALDONADO Parry Attn: Accountin g,[address] [facility], [place], [address], [facility] 4 10:05:40 Body mass index 30+ - obesity 127807279 Active 2023 MALDONADO Parry Attn: Accountin g,[address] [facility], [place], [address], [facility] 4 14:10:26 Problem Notes None recorded. Procedures Surgical History Date Name Laterality Status Provider Name and Address Organization Details Recorded Time 10/09/19 00 Gastrointestinal Surgery completed Dipti Serrano MA [facility] 03/11/2024 11:19:56 10/09/18 98 Total hysterectomy completed Dipti Serrano MA [facility] 03/11/2024 11:20:20 Imaging Results None recorded. Procedure Notes None recorded. Medical Equipment None Reported. Allergies Allergen ID Allergen Name Allergen Category Reaction Reaction Severity Criticality Documentation Date Start Date Code Code System Note Provider Name and Address Organization Details Recorded Time 463759 Substance with sulfonami de structure and antibacte rial mechanism of action (substanc e) medicatio n Not available Not available Not available 03/11/2024 19614 8003 SNOMED OSCAR Larry, [facility] 4 11:16:52 Medications Name Sig Start Date Stop Date Status Note LastModified by Organization Details LastModified Time azithromyci n 250 mg tablet TAKE 2 TABLETS BY MOUTH TODAY, THEN TAKE 1 TABLET DAILY FOR 4 DAYS DIRECTED 01/10 completed Not Available Not Available Not Available lisinopril 20 mg tablet TAKE 1 TABLET TWICE A DAY BY ORAL ROUTE, FOR BLOOD PRESSURE. active Not Available Not Available No t Available amlodipine 5 mg tablet TAKE 1 TABLET BY MOUTH EVERY DAY active Not Available Not Available No t Available glimepiride 1 mg tablet Take 1 tablet twice a day by oral route with meal(s). active Not Available Not Available No t Available amlodipine 10 mg tablet TAKE 1 TABLET BY MOUTH EVERY DAY 2023 active Not Available Not Available Not Avai lable metformin 1,000 mg tablet TAKE 1 TABLET BY MOUTH TWICE A DAY 2023 active Not Available Not Available Not Avai lable losartan 100 mg tablet TAKE 1 TABLET BY MOUTH EVERY DAY 2023 active Not Available Not Available Not Avai lable olmesartan 40 mg-hydrochl orothiazide 12.5 mg tablet Take 1 tablet every day by oral route. 12/31 completed Not Available Not Available Not Available valsartan 320 mg-hydrochl orothiazide 12.5 mg tablet TAKE 1 TABLET BY MOUTH EVERY DAY 01/10 completed Not Available Not Available Not Available OneTouch Verio test strips USE TO TEST 2-3 TIMES A DAY (E11.65) active Not Available Not Available No t Available Paxlovid 300 mg (150 mg x 2)-100 mg tablets in a dose pack 300 MG NIRMATREL VIR WITH 100 MG RITONAVIR TAKEN TOGETHER ORALLY TWICE DAILY FOR 5 DAYS. 09/20 completed Not Available Not Available Not Available Vitals Date Recorded Body height Body mass index (BMI) Body weight Heart rate Oxygen saturation Oxygen saturation in Arterial blood by Pulse oximetry Systolic blood pressure Diastolic blood pressure Provider Name and Address Organization Details Last Updated DateTime 4 157.48 cm 32.5 kg/m2 52666.6 5 g 73 /min 98 % 98 % 150 mm[Hg] 82 mm[Hg] Dipti Serrano MA [facility] - [facility] 4 11:22:41 Date Recorded Systolic blood pressure Diastolic blood pressure Provider Name and Address Organization Details Last Updated DateTime 03/11/2024 150 mm[Hg] 80 mm[Hg] MALDONADO Parry Attn: Accounting,[address] [place], [address], [place] [facility] [place] 03/11/2024 11:45:20 Social History Question Answer Notes LastModified by Organizat ion Details LastModified Time Tobacco Smoking Status Never Smoker Dipti MaeOSCAR doll, [facility] 03/11/2024 11:18:33 Do You Have An Advance Directive? No Information n ot available 03/11/2024 What Is Your Level Of Alcohol Consumption? None Information not available 03/11/2024 Are You Blind Or Do You Have Difficulty Seeing? No Information n ot available 03/11/2024 What Is Your Level Of Caffeine Consumption? None Information not available 03/11/2024 In The 14 Days Before Symptom Onset, Have You Had Close Contact With A Laboratory-confirm ed COVID-19 While That Case Was Ill? No Information n ot available 03/11/2024 In The 14 Days Before Symptom Onset, Have You Had Close Contact With A Person Who Is Under Investigation For COVID-19 While That Person Was Ill? No Information not available 03/11/2024 Have You Been To An Area Known To Be High Risk For COVID-19? No Information not available 03/11/2024 Are You Currently Employed? No Information not available 03/11/2024 Are You Deaf Or Do You Have Serious Difficulty Hearing? No Information not available 03/11/2024 What Type Of Diet Are You Following? REGULAR Information n ot available 03/11/2024 Are There Any Guns Present In Your Home? No Information not available 03/11/2024 What Was The Date Of Your Most Recent Tobacco Screening? 03/11/2024 Information not available 03/11/2024 What Is Your Relationship Status? Information not available 03/11/2024 Do You Use Your Seat Belt Or Car Seat Routinely? Yes Information not available 03/11/2024 Do You Have Smoke And Carbon Monoxide Detectors In Your Home? Yes Information not available 03/11/2024 Do You Feel Stressed (tense, Restless, Nervous, Or Anxious, Or Unable To Sleep At Night)? [id number] Information not available 03/11/2024 Do You Use Any Illicit Or Recreational Drugs? No Information not available 03/11/2024 Do You Use Sunscreen Routinely? No Information not available 03/11/2024 Has Tobacco Cessation Counseling Been Provided? No Information not available 03/11/2024 Do You Or Have You Ever Used Any Other Forms Of Tobacco Or Nicotine? No Information not available 03/11/2024 Sex: Female Functional Status Question Answer Note LastModified by Organization D etails LastModified Time Are you able to care for yourself? Yes Information n ot available 03/11/2024 What is your exercise level? None Information not available 03/11/2024 Mental Status None recorded. Family History Relationship Description Onset Age of this Age Resolved Age Notes LastModified by Organization Details LastModified Time Mother Dementia mebyma Not available 0 03/11/2024 11:17:53 Mother Hypertensive disorder mebyma Not available 2023 11:18:09 Father Dementia mebyma Not available 0 03/11/2024 11:17:53 Father Heart disease mebyma Not available 2023 11:18:01 Medical History Condition Response Depression Y Asthma Y Gynecological History Statement/Question Response If Post Menopausal, Age at Menopause Current Control Method Hysterectom y Obstetrics History GPAL:G 0 P 0 0 0 0 Past Encounters Encounter ID Performer Location Encounter Start Date Encounter Closed Date Diagnosis/Indication Diagnosis SNOMED-CT Code Diagnosis ICD10 Code [id number] MALDONADO Parry [facility] [place] [address] [facility] [address] [place] [address] 03/11/2024 10:42:52 03/11/2024 11:53:41 Uncontrolled type 2 diabetes mellitus 675947345 E11.65 Benign ess ential hypertension 7085947 I10 Obesity 407331058 E66.9 Long-term drug therapy 204033560 Z79.899 Cholesterol screening 27 8844582 Z13.220 Screening mammography 24 040632 Z12.31 Body mass index 30+ - obesity 296000138 Z68.32 Health Concerns Section Related Observation LastModified by Organization Detai ls LastModified Time None Recorded Concern Status LastModified by Organization Details LastModified Time None Recorded Advance Directives Directive N: Payers Encounter Date Sequence Insurance Name Policy Number Policy Carcamo Covered Member ID Carcamo Member ID Guarantor Name 03/11/2024 1 [facility] (MEDICARE REPLACEMENT/A DVANTAGE - PPO) [id number] Raphael Ospina [id number] Raphael Ospina 03/11/2024 2 MEDICARE-ID (MEDICARE) Raphael Ospina [id number] Raphael Ospina Notes Date Note Type Note Provider Name and Address Organization Details Recorded Time 03/11/2024 text/html DiabetesReported bypatient.Notes:has not been controlled on past labs. she is to be taking metformin 1000mg bid and glimeperide 1mg bid.HypertensionReport ed bypatient.Notes:pt now on losartan therapy, had cough from JEREMIAS and then didn't like the way the first ARB made her feel. she's tolerating losartan fine, but her BP is not to goal. MALDONADO Parry Attn: Accounting,[address] [place], [address], [facility] 04/06/2024 14:10:45 OBGyn Episode No OBEpisode recorded.
--- OUTSIDE RECORDS SUMMARY | 2024-09-20 13:19 | XMS_ITS | Data Portability ---
Author Organization [place] [facility] [employer], Main Office Address [address] [place] [address] Assessment Encounter Date Assessment Date Assessment LastModified by Organization Details LastModified Time 01/18/2023 01/18/2023 Pt has not completed her mammogram, dexa or cologuard or CT adrenal. she has the orders for all these and has been encouraged to make this a priority for her health evaluation. [email or web address] Not available 02/04/2023 16:48:05 Plan of Treatment Reminders Order Date Submit Date Provider Last Modified By Organization Details Last Modified Time Details Appointments None recorded. Lab HbA1c (hemoglobin A1c), blood 2022 023 [email or web address] [facility], [address] [facility], [place], [address], 4 12:06:24 hepatic function panel, serum 2022 023 [email or web address] [facility], [address] [facility], [place], [address], 4 12:06:24 BMP, serum or plasma 2022 023 [email or web address] [facility], [address] , [place], [address], 4 12:06:25 lipid panel, serum 2022 023 [email or web address] [facility], [address] , [place], [address], 4 12:06:25 Referral None recorded. Procedures None recorded. Surgeries None recorded. Imaging None recorded. Medication Orders glimepiride 1 mg tablet 2022 023 [email or web address] [id number], [address] [place], [address], 3 18:01:23 Patient TargetsNo targets recorded. Patient InstructionsNo instructions recorded. Reason for Referral None Reported. Results Created Date Observation Date Name Description Value Unit Range Abnormal Flag Note LastModifiedBy Organization Detail LastModifiedTime 11/03/19 22 11/05/2021 SARS COV 2 AB (IGG) NUCLE OCAPS ID, QL sars cov 2 Ab IgG positi ve abnormal Refer ence range : Negat maria eugenia This test is inten ded for use as an aid in ident ifyin g indiv idual s with an adapt maria eugenia immun e respo nse to SARS- CoV-2 , indic ating recen t or prior infec tion. Resul ts are for the detec tion of SARS- CoV-2 antib odies . IgG antib odies to SARS- CoV-2 are gener ally detec table in blood sever al days after initi al infec tion, altho ugh the durat ion of time antib odies are prese nt post- infec tion is not well michelle cteri zed. At this time, it is unkno wn for how long antib odies persi st follo wing infec tion and if the prese nce of antib odies confe rs prote ctive immun ity. Indiv idual s may have detec table virus by molec ular testi ng prese nt for sever al weeks follo wing seroc onver santy. Negat maria eugenia resul ts do not precl ude acute SARS- CoV-2 infec tion. This test shoul d not be used to diagn ose acute SARS- CoV-2 infec tion. If acute infec tion is suspe cted, direc t testi ng by molec ular metho ds for SARS- CoV-2 is necbrandt farrell. False posit maria eugenia resul ts for the test may occur due to cross -reac tivit y from pre-e xisti ng antib odies or other possi ble cause s. Pleas e revie w the Fact Sheet s avail able for healt h care provi ders and patie nts using the follo wing websi agnieszka: [facility] /home /Covi d-19/ HCP/a ntibo dy/fa ct-sh eet2 [facility]home /Covi d-19/ Patie nts/a ntibo dy/fa ct-sh eet2 This test has been autho rized by the FDA under an Emerg ency Use Autho rizat ion (EUA) for use by autho rized labor atori es. The FDA autho rized label ing is avail able on the [facility] websi te: www.Q uestD iagno stics .[employer]/ Covid 19. For addit ional infor wagner rea e refer to http: //jessy naranjo stdia gnost ics.c om/fa q/FAQ 219 (This link is being provi ded for infor wagner nal/e ducat ional purpo ses only. ) Not Available [facility] [address], [address], 11/05/2021 12:46:42 11/03/19 22 11/05/2021 CBC (INCL UDES DIFF/ PLT) white blood cell count 7.7 thous and/u L 3.8-10 .8 normal Not Available [address], [address], 11/05/2021 12:46:41 11/03/19 22 11/05/2021 CBC (INCL UDES DIFF/ PLT) red blood cell count 4.43 gabrielle on/uL 3.80-5 .10 normal Not Available [facility] [address] [address] [place], [address], 11/05/2021 12:46:41 11/03/19 22 11/05/2021 CBC (INCL UDES DIFF/ PLT) hemoglobin 13.8 g/dL 11.7-1 5.5 normal Not Available [employer] [facility] [address], [address], 11/05/2021 12:46:41 11/03/19 22 11/05/2021 CBC (INCL UDES DIFF/ PLT) hematocrit 40.3 % 35.0-4 5.0 normal Not Available [address], [address], 11/05/2021 12:46:41 11/03/19 22 11/05/2021 CBC (INCL UDES DIFF/ PLT) MCV 91.0 fL 80.0-1 00.0 normal Not Available [address], [address], 11/05/2021 12:46:41 11/03/19 22 11/05/2021 CBC (INCL UDES DIFF/ PLT) MCH 31.2 pg 27.0-3 3.0 normal Not Available [address], [address], 11/05/2021 12:46:41 11/03/19 22 11/05/2021 CBC (INCL UDES DIFF/ PLT) MCHC 34.2 g/dL 32.0-3 6.0 normal Not Available [address], [address], 11/05/2021 12:46:41 11/03/19 22 11/05/2021 CBC (INCL UDES DIFF/ PLT) RDW 12.7 % 11.0-1 5.0 normal Not Available [address], [address], 11/05/2021 12:46:41 11/03/19 22 11/05/2021 CBC (INCL UDES DIFF/ PLT) platelet count 163 thous and/u L 140-40 0 normal Not Available [address], [address], 11/05/2021 12:46:41 11/03/19 22 11/05/2021 CBC (INCL UDES DIFF/ PLT) MPV 12.3 fL 7.5-12 .5 normal Not Available [address] [place], [address], 11/05/2021 12:46:41 11/03/19 22 11/05/2021 CBC (INCL UDES DIFF/ PLT) absolute neutrophils 3873 cells /uL 1500-7 800 normal Not Available [address], [address], 11/05/2021 12:46:41 11/03/19 22 11/05/2021 CBC (INCL UDES DIFF/ PLT) absolute lymphocytes 3011 cells /uL 850-39 00 normal Not Available [address], [address], 11/05/2021 12:46:41 11/03/19 22 11/05/2021 CBC (INCL UDES DIFF/ PLT) absolute monocytes 531 cells /uL 200-95 0 normal Not Available [address], [address], 11/05/2021 12:46:41 11/03/19 22 11/05/2021 CBC (INCL UDES DIFF/ PLT) absolute eosinophils 239 cells /uL 15-500 normal Not Available [address], [address], 11/05/2021 12:46:41 11/03/19 22 11/05/2021 CBC (INCL UDES DIFF/ PLT) absolute basophils 46 cells /uL 0-200 normal Not Available [address], [address], 11/05/2021 12:46:41 11/03/19 22 11/05/2021 CBC (INCL UDES DIFF/ PLT) neutrophils 50.3 % normal Not Available [address], [address], 11/05/2021 12:46:41 11/03/19 22 11/05/2021 CBC (INCL UDES DIFF/ PLT) lymphocytes 39.1 % normal Not Available [address], [address], 11/05/2021 12:46:41 11/03/19 22 11/05/2021 CBC (INCL UDES DIFF/ PLT) monocytes 6.9 % normal Not Available [address], [address], 11/05/2021 12:46:41 11/03/19 22 11/05/2021 CBC (INCL UDES DIFF/ PLT) eosinophils 3.1 % normal Not Available [address], [address], 11/05/2021 12:46:41 11/03/19 22 11/05/2021 CBC (INCL UDES DIFF/ PLT) basophils 0.6 % normal Not Available [address], [address], 11/05/2021 12:46:41 11/03/19 22 11/05/2021 HEPAT IC FUNCT ION PANEL protein, total 7.0 g/dL 6.1-8. 1 normal Not Available [address], [address], 11/05/2021 12:46:40 11/03/19 22 11/05/2021 HEPAT IC FUNCT ION PANEL albumin 4.7 g/dL 3.6-5. 1 normal Not Available [address], [address], 11/05/2021 12:46:40 11/03/19 22 11/05/2021 HEPAT IC FUNCT ION PANEL globulin 2.3 g/dL_ (calc ) 1.9-3. 7 normal Not Available [address], [address], 11/05/2021 12:46:40 11/03/19 22 11/05/2021 HEPAT IC FUNCT ION PANEL albumin/glob ulin ratio 2.0 (calc ) 1.0-2. 5 normal Not Available [address], [address], 11/05/2021 12:46:40 11/03/19 22 11/05/2021 HEPAT IC FUNCT ION PANEL bilirubin, total 0.5 mg/dL 0.2-1. 2 normal Not Available [address], [address], 11/05/2021 12:46:40 11/03/19 22 11/05/2021 HEPAT IC FUNCT ION PANEL bilirubin, direct 0.1 mg/dL < or = 0.2 normal Not Available [address], [address], 11/05/2021 12:46:40 11/03/19 22 11/05/2021 HEPAT IC FUNCT ION PANEL bilirubin, indirect 0.4 mg/dL _(serena c) 0.2-1. 2 normal Not Available [address], [address], 11/05/2021 12:46:40 11/03/19 22 11/05/2021 HEPAT IC FUNCT ION PANEL alkaline phosphatase 52 U/L 37-153 normal Not Available [address] [address] [place], [address], 11/05/2021 12:46:40 11/03/19 22 11/05/2021 HEPAT IC FUNCT ION PANEL AST 22 U/L 10-35 normal Not Available [address], [address], 11/05/2021 12:46:40 11/03/19 22 11/05/2021 HEPAT IC FUNCT ION PANEL ALT 26 U/L 6-29 normal Not Available [address], [address], 11/05/2021 12:46:40 11/03/19 22 11/05/2021 HEMOG LOBIN A1C hemoglobin A1C 9.1 %_of_ total _HGB <5.7 high Not Available [address], [address], 11/05/2021 12:46:39 11/03/19 22 11/05/2021 BASIC METAB OLIC PANEL glucose 124 mg/dL 65-99 high Fasti ng refer ence inter kyle For someo ne witho ut known diabe agnieszka, a gluco se value betwe en 100 and 125 mg/dL is consi stent with predi abete s and shoul d be confi rmed with a follo w-up test. Not Available [address], [address], 11/05/2021 12:46:39 11/03/19 22 11/05/2021 BASIC METAB OLIC PANEL urea nitrogen (BUN) 19 mg/dL 7-25 normal Not Available [address], [address], 11/05/2021 12:46:39 11/03/19 22 11/05/2021 BASIC METAB OLIC PANEL creatinine 1.06 mg/dL 0.50-0 .99 high For patie nts >49 years of age, the refer ence limit for Creat inine is appro ximat deborah 13% highe r for peopl e ident ified as Afric an-Am shane n. Not Available [facility] [address] [address] [place], [address], 11/05/2021 12:46:39 11/03/1911/05/2021 BASIC METAB OLIC PANEL eGFR non-afr. british 54 mL/mi n/1.7 3m2 > or = 60 low Not Available [facility] [address], [address], 11/05/2021 12:46:39 11/03/19 22 11/05/2021 BASIC METAB OLIC PANEL eGFR 62 mL/mi n/1.7 3m2 > or = 60 normal Not Available [address], [address], 11/05/2021 12:46:39 11/03/19 22 11/05/2021 BASIC METAB OLIC PANEL BUN/creatini ne ratio 18 (calc ) 6-22 normal Not Available [address], [address], 11/05/2021 12:46:39 11/03/19 22 11/05/2021 BASIC METAB OLIC PANEL sodium 141 mmol/ L 135-14 6 normal Not Available [address], [address], 11/05/2021 12:46:39 11/03/19 22 11/05/2021 BASIC METAB OLIC PANEL potassium 4.4 mmol/ L 3.5-5. 3 normal Not Available [address], [address], 11/05/2021 12:46:39 11/03/19 22 11/05/2021 BASIC METAB OLIC PANEL chloride 101 mmol/ L 98-110 normal Not Available [address], [address], 11/05/2021 12:46:39 11/03/19 22 11/05/2021 BASIC METAB OLIC PANEL carbon dioxide 25 mmol/ L 20-32 normal Not Available [address], [address], 11/05/2021 12:46:39 11/03/19 22 11/05/2021 BASIC METAB OLIC PANEL calcium 9.7 mg/dL 8.6-10 .4 normal Not Available [address], [address], 11/05/2021 12:46:39 11/03/19 22 11/05/2021 LIPID PANEL WITH RATIO S cholesterol, total 222 mg/dL <200 high Not Available [address], [address], 11/05/2021 12:46:38 11/03/19 22 11/05/2021 LIPID PANEL WITH RATIO S HDL cholesterol 77 mg/dL > or = 50 normal Not Available [address], [address], 11/05/2021 12:46:38 11/03/19 22 11/05/2021 LIPID PANEL WITH RATIO S triglyceride s 129 mg/dL <150 normal Not Available [address], [address], 11/05/2021 12:46:38 11/03/19 22 11/05/2021 LIPID PANEL WITH RATIO S LDL-choleste rol 121 mg/dL _(serena c) high Refer ence range : <100 Claude able range <100 mg/dL for prima ry preve ntion ; <70 mg/dL for patie nts with CHD or diabe tic patie nts with > or = 2 CHD risk facto rs. LDL-C is now calcu lated using the Rita n-Hop [facility] calcu anne n, which is a valid ated novel etelvinao alison hurst r accur acy than the Fried fritz equat ion in the estim ation of LDL-C . Rita gonzalez SS et al. EILEEN. 2013; 310(1 9): 2061- 2068 (http ://ed ucati on.Qu [employer]. com/f aq/FA Q164) Not Available [address], [address], 11/05/2021 12:46:38 11/03/19 22 11/05/2021 LIPID PANEL WITH RATIO S chol/HDLC ratio 2.9 (calc ) <5.0 normal Not Available [address], [address], 11/05/2021 12:46:38 11/03/19 22 11/05/2021 LIPID PANEL WITH RATIO S LDL/HDL ratio 1.6 (calc ) Below avera ge Risk: <2.34 [place] ge Risk: 2.35- 4.12 Moder ate Risk: 4.13- 5.56 High Risk: >5.57 Not Available [address], [address], 11/05/2021 12:46:38 11/03/19 22 11/05/2021 LIPID PANEL WITH RATIO S non HDL cholesterol 145 mg/dL _(serena c) <130 high For patie nts with diabe agnieszka plus 1 major ASCVD risk facto r, treat ing to a non-H DL-C goal of <100 mg/dL (LDL- C of <70 mg/dL ) is consi matid a thera pesegundo c optio n. Not Available [address], [address], 11/05/2021 12:46:38 11/03/19 22 11/05/2021 TSH+F REE T4 TSH 4.23 mIU/L 0.40-4 .50 normal Not Available [address], [address], 11/05/2021 12:46:35 11/03/19 22 11/05/2021 TSH+F REE T4 T4, free 1.1 NG/dL 0.8-1. 8 normal Not Available [address], [address], 11/05/2021 12:46:35 01/15/20 23 01/16/2023 ALBUM IN, RANDO M URINE W/CRE ATINI NE creatinine, random urine 67 mg/dL 20-275 normal Not Available [address] [address] [place], [address], 01/16/2023 16:25:05 01/15/20 23 01/16/2023 ALBUM IN, RANDO M URINE W/CRE ATINI NE albumin, urine 0.4 mg/dL see note: normal Refer ence Range : Refer ence Range Not estab lishe d Not Available [address], [address], 01/16/2023 16:25:05 01/15/20 23 01/16/2023 ALBUM IN, RANDO M URINE W/CRE ATINI NE albumin/crea tinine ratio, random urine 6 mcg/m g_cre at <30 normal The ADA defin es abnor malit ies in album in excre tion as follo ws: Album inuri a Categ ory Resul t (mcg/ mg creat inine ) Angelique l to Mildl y incre ased <30 Moder ately incre ased 30-29 9 Sever deborah incre ased > OR = 300 The ADA recom mends that at least two of three speci mens colle cted withi n a 3-6 month perio d be abnor mal befor e consi cristina g a patie nt to be withi n a diagn ostic categ ory. Not Available [address], [address], 01/16/2023 16:25:05 01/15/20 23 01/16/2023 TSH+F REE T4 TSH 3.00 mIU/L 0.40-4 .50 normal Not Available [address], [address], 01/16/2023 16:25:06 01/15/20 23 01/16/2023 TSH+F REE T4 T4, free 1.1 NG/dL 0.8-1. 8 normal Not Available [address], [address], 01/16/2023 16:25:06 01/15/20 23 01/16/2023 LIPID PANEL WITH RATIO S cholesterol, total 205 mg/dL <200 high Not Available [address] [place], [address], 01/16/2023 16:25:06 01/15/20 23 01/16/2023 LIPID PANEL WITH RATIO S HDL cholesterol 74 mg/dL > or = 50 normal Not Available [facility] [address] [address] [place], [address], 01/16/2023 16:25:06 01/15/20 23 01/16/2023 LIPID PANEL WITH RATIO S triglyceride s 129 mg/dL <150 normal Not Available [facility] [address] [address] [place], [address], 01/16/2023 16:25:06 01/15/20 23 01/16/2023 LIPID PANEL WITH RATIO S LDL-choleste rol 107 mg/dL _(serena c) high Refer ence range : <100 Claude able range <100 mg/dL for prima ry preve ntion ; <70 mg/dL for patie nts with CHD or diabe tic patie nts with > or = 2 CHD risk facto rs. LDL-C is now calcu lated using the Rita gonzalez-Hop kins patelu anne n, which is a valid ated novel wade treadwell acy than the Fried fritz equat ion in the estim ation of LDL-C . Rita gonzalez SS et al. EILEEN. 2013; 310(1 9): 2061- 2068 (http ://ed ucati on.Ivania singh [employer]s. com/f aq/FA Q164) Not Available [facility] [address] [address] [place], [address], 01/16/2023 16:25:06 01/15/20 23 01/16/2023 LIPID PANEL WITH RATIO S chol/HDLC ratio 2.8 (calc ) <5.0 normal Not Available [address] [address] [place], [address], 01/16/2023 16:25:06 01/15/20 23 01/16/2023 LIPID PANEL WITH RATIO S LDL/HDL ratio 1.4 (calc ) Below avera ge Risk: <2.34 [place] ge Risk: 2.35- 4.12 Moder ate Risk: 4.13- 5.56 High Risk: >5.57 Not Available [address] [address] [place], [address], 01/16/2023 16:25:06 01/15/20 23 01/16/2023 LIPID PANEL WITH RATIO S non HDL cholesterol 131 mg/dL _(serena c) <130 high For patie nts with diabe agnieszka plus 1 major ASCVD risk facto r, treat ing to a non-H DL-C goal of <100 mg/dL (LDL- C of <70 mg/dL ) is consi dered a thera peuti c optio n. Not Available [facility] [address] [place], [address], 01/16/2023 16:25:06 01/15/20 23 01/16/2023 BASIC METAB OLIC PANEL glucose 192 mg/dL 65-99 high Fasti ng refer ence inter kyle For someo ne witho ut known diabe agnieszka, a gluco se value >125 mg/dL indic ates that they may have diabe agnieszka and this shoul d be confi rmed with a follo w-up test. Not Available [facility] [address] [address] [place], [address], 01/16/2023 16:25:07 01/15/20 23 01/16/2023 BASIC METAB OLIC PANEL urea nitrogen (BUN) 22 mg/dL 7-25 normal Not Available [facility] [address] [address] [place], [address], 01/16/2023 16:25:07 01/15/20 23 01/16/2023 BASIC METAB OLIC PANEL creatinine 1.08 mg/dL 0.60-1 .00 high Not Available [facility] [address] [address] [place], [address], 01/16/2023 16:25:07 01/15/20 23 01/16/2023 BASIC METAB OLIC PANEL eGFR 55 mL/mi n/1.7 3m2 > or = 60 low The eGFR is based on the CKD-E PI 2020 equat ion. To calcu late the new eGFR from a previ ous Creat inine or Cysta tin C resul t, go to https ://vania w.octavio carrillo.o danny/parish ofess ional s/ kdoqi /gfr% 5Fcal culat or Not Available [facility] [address] [address] [place], [address], 01/16/2023 16:25:07 01/15/20 23 01/16/2023 BASIC METAB OLIC PANEL BUN/creatini ne ratio 20 (calc ) 6-22 normal Not Available [address] [address] [place], [address], 01/16/2023 16:25:07 01/15/20 23 01/16/2023 BASIC METAB OLIC PANEL sodium 137 mmol/ L 135-14 6 normal Not Available [facility] [address] [address] [place], [address], 01/16/2023 16:25:07 01/15/20 23 01/16/2023 BASIC METAB OLIC PANEL potassium 4.5 mmol/ L 3.5-5. 3 normal Not Available [facility] [address] [address] [place], [address], 01/16/2023 16:25:07 01/15/20 23 01/16/2023 BASIC METAB OLIC PANEL chloride 102 mmol/ L 98-110 normal Not Available [facility] [address] [address] [place], [address], 01/16/2023 16:25:07 01/15/20 23 01/16/2023 BASIC METAB OLIC PANEL carbon dioxide 25 mmol/ L 20-32 normal Not Available [facility] [address] [address] [place], [address], 01/16/2023 16:25:07 01/15/20 23 01/16/2023 BASIC METAB OLIC PANEL calcium 9.8 mg/dL 8.6-10 .4 normal Not Available [address], [address], 01/16/2023 16:25:07 01/15/20 23 01/16/2023 HEMOG LOBIN A1C hemoglobin A1C 8.9 %_of_ total _HGB <5.7 high For someo ne witho ut known diabe agnieszka, a hemog lobin A1c value of 6.5% or great er indic ates that they may have diabe agnieszka and this shoul d be confi rmed with a follo w-up test. For someo ne with known diabe agnieszka, a value <7% indic ates that their diabe agnieszka is well contr olled and a value great er than or equal to 7% indic ates subop timal contr ol. A1c targe ts shoul d be indiv idual ized based on durat ion of diabe agneiszka, age, comor bid condi tions , and other consi derat ions. Curre ntly, no conse nsus exist s sofia laughlin use of hemog lobin A1c for diagn osis of diabe agnieszka for child mario. Not Available [address], [address], 01/16/2023 16:25:08 01/15/20 23 01/16/2023 HEPAT IC FUNCT ION PANEL protein, total 6.7 g/dL 6.1-8. 1 normal Not Available [facility] [address] [address] [place], [address], 01/16/2023 16:25:08 01/15/20 23 01/16/2023 HEPAT IC FUNCT ION PANEL albumin 4.7 g/dL 3.6-5. 1 normal Not Available [facility] [address] [address] [place], [address], 01/16/2023 16:25:08 01/15/20 23 01/16/2023 HEPAT IC FUNCT ION PANEL globulin 2.0 g/dL_ (calc ) 1.9-3. 7 normal Not Available [address], [address], 01/16/2023 16:25:08 01/15/20 23 01/16/2023 HEPAT IC FUNCT ION PANEL albumin/glob ulin ratio 2.4 (calc ) 1.0-2. 5 normal Not Available [address], [address], 01/16/2023 16:25:08 01/15/20 23 01/16/2023 HEPAT IC FUNCT ION PANEL bilirubin, total 0.6 mg/dL 0.2-1. 2 normal Not Available [address], [address], 01/16/2023 16:25:08 01/15/20 23 01/16/2023 HEPAT IC FUNCT ION PANEL bilirubin, direct 0.1 mg/dL < or = 0.2 normal Not Available [address], [address], 01/16/2023 16:25:08 01/15/20 23 01/16/2023 HEPAT IC FUNCT ION PANEL bilirubin, indirect 0.5 mg/dL _(serena c) 0.2-1. 2 normal Not Available [address], [address], 01/16/2023 16:25:08 01/15/20 23 01/16/2023 HEPAT IC FUNCT ION PANEL alkaline phosphatase 56 U/L 37-153 normal Not Available [facility] [address], [address], 01/16/2023 16:25:08 01/15/20 23 01/16/2023 HEPAT IC FUNCT ION PANEL AST 33 U/L 10-35 normal Not Available [address], [address], 01/16/2023 16:25:08 01/15/20 23 01/16/2023 HEPAT IC FUNCT ION PANEL ALT 43 U/L 6-29 high Not Available [address], [address], 01/16/2023 16:25:08 01/15/20 23 01/16/2023 CBC (INCL UDES DIFF/ PLT) white blood cell count 7.3 thous and/u L 3.8-10 .8 normal Not Available [address], [address], 01/16/2023 16:25:09 01/15/20 23 01/16/2023 CBC (INCL UDES DIFF/ PLT) red blood cell count 4.27 gabrielle on/uL 3.80-5 .10 normal Not Available [address], [address], 01/16/2023 16:25:09 01/15/20 23 01/16/2023 CBC (INCL UDES DIFF/ PLT) hemoglobin 13.4 g/dL 11.7-1 5.5 normal Not Available [address], [address], 01/16/2023 16:25:09 01/15/20 23 01/16/2023 CBC (INCL UDES DIFF/ PLT) hematocrit 39.9 % 35.0-4 5.0 normal Not Available [address], [address], 01/16/2023 16:25:09 01/15/20 23 01/16/2023 CBC (INCL UDES DIFF/ PLT) MCV 93.4 fL 80.0-1 00.0 normal Not Available [facility] [address], [address], 01/16/2023 16:25:09 01/15/20 23 01/16/2023 CBC (INCL UDES DIFF/ PLT) MCH 31.4 pg 27.0-3 3.0 normal Not Available [address], [address], 01/16/2023 16:25:09 01/15/20 23 01/16/2023 CBC (INCL UDES DIFF/ PLT) MCHC 33.6 g/dL 32.0-3 6.0 normal Not Available [address], [address], 01/16/2023 16:25:01/15/20 23 01/16/2023 CBC (INCL UDES DIFF/ PLT) RDW 11.9 % 11.0-1 5.0 normal Not Available [address], [address], 01/16/2023 16:25:01/15/20 23 01/16/2023 CBC (INCL UDES DIFF/ PLT) platelet count 149 thous and/u L 140-40 0 normal Not Available [address], [address], 01/16/2023 16:25:09 01/15/20 23 01/16/2023 CBC (INCL UDES DIFF/ PLT) MPV 12.2 fL 7.5-12 .5 normal Not Available [address], [address], 01/16/2023 16:25:09 01/15/20 23 01/16/2023 CBC (INCL UDES DIFF/ PLT) absolute neutrophils 3489 cells /uL 1500-7 800 normal Not Available [address], [address], 01/16/2023 16:25:09 01/15/20 23 01/16/2023 CBC (INCL UDES DIFF/ PLT) absolute lymphocytes 3044 cells /uL 850-39 00 normal Not Available [address] [place], [address], 01/16/2023 16:25:09 01/15/20 23 01/16/2023 CBC (INCL UDES DIFF/ PLT) absolute monocytes 431 cells /uL 200-95 0 normal Not Available [facility] [address], [address], 01/16/2023 16:25:09 01/15/20 23 01/16/2023 CBC (INCL UDES DIFF/ PLT) absolute eosinophils 263 cells /uL 15-500 normal Not Available [facility] [address], [address], 01/16/2023 16:25:09 01/15/20 23 01/16/2023 CBC (INCL UDES DIFF/ PLT) absolute basophils 73 cells /uL 0-200 normal Not Available [facility] [address], [address], 01/16/2023 16:25:09 01/15/20 23 01/16/2023 CBC (INCL UDES DIFF/ PLT) neutrophils 47.8 % normal Not Available [facility] [address], [address], 01/16/2023 16:25:09 01/15/20 23 01/16/2023 CBC (INCL UDES DIFF/ PLT) lymphocytes 41.7 % normal Not Available [facility] [address], [address], 01/16/2023 16:25:09 01/15/20 23 01/16/2023 CBC (INCL UDES DIFF/ PLT) monocytes 5.9 % normal Not Available [facility] [address], [address], 01/16/2023 16:25:09 01/15/20 23 01/16/2023 CBC (INCL UDES DIFF/ PLT) eosinophils 3.6 % normal Not Available [facility] [address], [address], 01/16/2023 16:25:09 01/15/20 23 01/16/2023 CBC (INCL UDES DIFF/ PLT) basophils 1.0 % normal Not Available [facility] [address] [place], [address], 01/16/2023 16:25:09 08/30/20 21 08/30/2021 MAMMO , scree donna, digit al, bilat eral No observ ation record ed. [id number] [facility] (Mamm[facility]) [address], [place], [address], 12/07/2022 05:02:18 09/22/20 21 09/15/2021 XR, chest No observ ation record ed. [id number] Not Available 12/07/2022 05:02:18 Result Notes None recorded. Problems Name Problem SNOMED Code Status Onset Date Resolution Date Notes Provider Name and Address Organization Details Recorded Time Upper respirator y infection [id number] Active 2022 MALDONADO Parry [address] [facility] [address], [place], [address] , [place] - [facility] [employer] 3 15:41:56 Benign essential hypertensi on 3880603 Active 2018 Not Available [employer] 3 04:52:20 History of SARS-CoV-2 0357541402934 92754 Active 2021 Not Available [facility] 3 04:52:20 Benign neoplasm of left adrenal gland 0871645519723 03 Active 2021 Not Available [facility] 3 04:52:20 Type 2 diabetes mellitus 25859910 Active 2019 Not Available [facility] 3 04:52:20 Uncontroll ed type 2 diabetes mellitus 680487859 Active 2021 Not Available [facility] 3 04:52:20 Hyperlipid emia 25164822 Active 2019 Not Available [facility] 3 04:52:20 Notes:Some problems listed i n Document: #[id number] could not be added to this patient's chart. Please review this document and add these problems to the patient's chart manually as needed. Problem Notes None recorded. Procedures Surgical History Date Name Laterality Status Provider Name and Address Organization Details Recorded Time Hysterectomy completed Not Available [facility] 12/07/2022 04:42:59 Cholecystectomy completed Not Available [facility] 12/07/2022 04:42:59 Imaging Results Imaging Date Name Status LastModified by Organiz ation Details LastModified Time 08/30/2021 MAMMO, screening, digital, bilateral completed [id number] [facility] (Mammography) [address], [place], [address], 12/07/2022 05:02:18 09/15/2021 XR, chest completed [id number] Information not available 12/07/2022 05:02:18 Procedure Notes None recorded. Medical Equipment None Reported. Allergies Allergen ID Allergen Name Allergen Category Reaction Reaction Severity Criticality Documentation Date Start Date Code Code System Note Provider Name and Address Organization Details Recorded Time 7620 Substance with sulfonami de structure and antibacte rial mechanism of action (substanc e) medicatio n Not available Not available Not available 12/07/2022 33153 8003 SNOMED Not Available [facility] 05:01:51 Medications Name Sig Start Date Stop Date Status Note LastModified by Organization Details LastModified Time amoxicillin 500 mg capsule TAKE 1 CAPSULE BY MOUTH EVERY 6 HOURS 04/26 completed Not Available Not Available Not Available atorvastati n 10 mg tablet Take 1 tablet every day by oral route in the evening. 11/25 completed Not Available Not Available Not Available azithromyci n 250 mg tablet TAKE 2 TABLETS BY MOUTH TODAY, THEN TAKE 1 TABLET DAILY FOR 4 DAYS DIRECTED active Not Available Not Available No t Available hydrocortis one valerate 0.2 % topical cream 08/20 completed Not Available Not Available Not Available hydrocodone 5 mg-acetamin ophen 325 mg tablet 01/23 completed Not Available Not Available Not Available doxycycline hyclate 50 mg capsule TAKE 1 CAPSULE BY MOUTH TWICE A DAY 01/18 completed Not Available Not Available Not Available glimepiride 1 mg tablet TAKE 1 TABLET BY MOUTH TWICE A DAY WITH MEALS active Not Available Not Available No t Available cephalexin 500 mg capsule TAKE 1 CAPSULE BY MOUTH TWICE A DAY 05/06 completed Not Available Not Available Not Available metformin 1,000 mg tablet TAKE 1 TABLET BY MOUTH TWICE A DAY active Not Available Not Available No t Available irbesartan 300 mg-hydrochl orothiazide 12.5 mg tablet 02/19 completed Not Available Not Available Not Available diclofenac sodium 75 mg tablet,osvaldo yed release Take 1 tablet twice a day by oral route with meals. active Not Available Not Available No t Available albuterol sulfate HFA 90 mcg/actuati on aerosol inhaler 01/18 completed Not Available Not Available Not Available cefdinir 300 mg capsule 02/19 completed Not Available Not Available Not Available amoxicillin 875 mg-potassiu m clavulanate 125 mg tablet TAKE 1 TABLET BY MOUTH TWICE A DAY 01/17 completed Not Available Not Available Not Available neomycin 3.5 mg/g-polymy shraddha B 10,000 unit/g-dexa meth 0.1 % eye oint APPLY A SMALL AMOUNT ON EYELID TWICE A DAY 09/21 completed Not Available Not Available Not Available olmesartan 40 mg-hydrochl orothiazide 12.5 mg tablet TAKE 1 TABLET BY MOUTH EVERY DAY active Not Available Not Available No t Available chlorhexidi ne gluconate 0.12 % mouthwash RINSE WITH 10ML TWICE DAILY IN THE AM AND PM FOR 30 SEC. 01/23 completed Not Available Not Available Not Available OneTouch Verio test strips USE TO TEST 2-3 TIMES A DAY (E11.65) active Not Available Not Available No t Available OneTouch Delica Lancets 30 gauge active Not Available Not Available Not Available OneTouch Verio Meter USE DIRECTED 3 TIMES DAILY. active Not Available Not Available No t Available ID NOW COVID-19 Test Kit TEST DIRECTED 12/01 completed Not Available Not Available Not Available Vitals Date Recorded Body mass index (BMI) Body height Oxygen saturation Oxygen saturation in Arterial blood by Pulse oximetry Heart rate Body temperature Body weight Systolic blood pressure Diastolic blood pressure Provider Name and Address Organization Details Last Updated DateTime 1 33.5 kg/m2 157.48 cm 97 % 97 % 76 /min 97 [degF] 81572.4 8 g 120 mm[Hg] 80 mm[Hg] Not Available [facility] 3 04:50:48 Date Recorded Body mass index (BMI) Body height Oxygen saturation Oxygen saturation in Arterial blood by Pulse oximetry Heart rate Respiratory rate Body temperature Body weight Systolic blood pressure Diastolic blood pressure Provider Name and Address Organization Details Last Updated DateTime 2 32.7 kg/m2 157.48 cm 99 % 99 % 88 /min 16 /min 97.3 [degF] 41240.3 2 g 176 mm[Hg] 98 mm[Hg] Not Available [facility] 3 04:50:48 Date Recorded Body mass index (BMI) Body height Oxygen saturation Oxygen saturation in Arterial blood by Pulse oximetry Heart rate Respiratory rate Body temperature Body weight Systolic blood pressure Diastolic blood pressure Provider Name and Address Organization Details Last Updated DateTime 2 32.6 kg/m2 157.48 cm 97 % 97 % 81 /min 16 /min 96.2 [degF] 07351.2 4 g 150 mm[Hg] 88 mm[Hg] Not Available [facility] 3 04:50:49 Date Recorded Body height Body temperature Body mass index (BMI) Body weight Respiratory rate Oxygen saturation Oxygen saturation in Arterial blood by Pulse oximetry Heart rate Systolic blood pressure Diastolic blood pressure Provider Name and Address Organization Details Last Updated DateTime 3 157.48 cm 97.1 [degF] 32.4 kg/m2 50208.8 5 g 16 /min 96 % 96 % 71 /min 158 mm[Hg] 92 mm[Hg] ANNA Mcgrath [employer] [facility] [employer] 3 09:55:46 Date Recorded Systolic blood pressure Diastolic blood pressure Provider Name and Address Organization Details Last Updated DateTime 01/18/2023 140 mm[Hg] 90 mm[Hg] MALDONADO Parry [address] [place] [address], [place], [address], [employer] 01/18/2023 10:21:09 Date Recorded Systolic blood pressure Diastolic blood pressure Provider Name and Address Organization Details Last Updated DateTime 10/21/2021 160 mm[Hg] 90 mm[Hg] Not Available [facility] [address] 12/07/2022 04:50:49 Date Recorded Systolic blood pressure Diastolic blood pressure Provider Name and Address Organization Details Last Updated DateTime 09/21/2022 160 mm[Hg] 90 mm[Hg] Not Available [facility] 0 12/07/2022 04:50:49 Social History Question Answer Notes LastModified by Organizat ion Details LastModified Time Tobacco Smoking Status Never Smoker Not Available [facility] 12/07/2022 04:42:29 Do You Have An Advance Directive? No MIGRATION.13596 [id number] Information not available 12/07/2022 What Is Your Level Of Alcohol Consumption? None MIGRATION.35605 13627 Information not available 12/07/2022 Do You Wear A Helmet When Biking? No MIGRATION.53614 02115 Information not available 12/07/2022 Are You Blind Or Do You Have Difficulty Seeing? Yes Wears Contacts MIGRATION.13897 65598 Information not available 12/07/2022 What Is Your Level Of Caffeine Consumption? Occasional 1 Coffee MIGRATION.07761 40418 Information not available 12/07/2022 How Much Tobacco Do You Chew? None MIGRATION.47880 24354 Information not available 12/07/2022 In The 14 Days Before Symptom Onset, Have You Had Close Contact With A Laboratory-confi rmed COVID-19 While That Case Was Ill? No MIGRATION.40933 51634 Information not available 12/07/2022 In The 14 Days Before Symptom Onset, Have You Had Close Contact With A Person Who Is Under Investigation For COVID-19 While That Person Was Ill? No MIGRATION.75607 51339 Information not available 12/07/2022 Are You Currently Employed? No Information not available 01/17/2023 Are You Deaf Or Do You Have Serious Difficulty Hearing? No MIGRATION.06895 29682 Information not available 12/07/2022 What Type Of Diet Are You Following? REGULAR MIGRATION.15205 04670 Information not available 12/07/2022 Which Illicit Or Recreational Drugs Have You Used? None MIGRATION.39483 68505 Information not available 12/07/2022 Do You Or Have You Ever Used E-cigarettes Or Vape? Never Used Electronic Cigarettes MIGRATION.65950 36933 Information not available 12/07/2022 What Is Your Occupation? Retired MIGRATION.78557 45301 Information not available 12/07/2022 Have There Been Any Changes To Your Family Or Social Situation? No MIGRATION.85596 80370 Information not available 12/07/2022 Are There Any Guns Present In Your Home? No MIGRATION.59053 43102 Information not available 12/07/2022 Do You Use Insect Repellent Routinely? Yes MIGRATION.01562 88163 Information not available 12/07/2022 Do You Have A Medical Power Of Municipal Bond Trader? No MIGRATION.95478 36687 Information not available 12/07/2022 Do You Have Any Pets? Yes MIGRATION.82489 81400 Information not available 12/07/2022 What Is Your Relationship Status? MIGRATION.28191 21677 Information not available 12/07/2022 Do You Use Your Seat Belt Or Car Seat Routinely? Yes MIGRATION.31630 22588 Information not available 12/07/2022 Do You Have Smoke And Carbon Monoxide Detectors In Your Home? Yes MIGRATION.12639 53555 Information not available 12/07/2022 Are You Passively Exposed To Smoke? No MIGRATION.69758 64589 Information not available 12/07/2022 Do You Or Have You Ever Used Smokeless Tobacco? Never Used Smokeless Tobacco MIGRATION.65525 36502 Information not available 12/07/2022 Are There Any Smokers In Your House? No MIGRATION.70822 35156 Information not available 12/07/2022 How Much Tobacco Do You Smoke? No MIGRATION.08678 77199 Information not available 12/07/2022 Do You Feel Stressed (tense, Restless, Nervous, Or Anxious, Or Unable To Sleep At Night)? EB3209-8 MIGRATION.04124 86155 Information not available 12/07/2022 Do You Use Any Illicit Or Recreational Drugs? No MIGRATION.06919 96919 Information not available 12/07/2022 Do You Use Sunscreen Routinely? Yes MIGRATION.25360 55574 Information not available 12/07/2022 Has Tobacco Cessation Counseling Been Provided? No MIGRATION.59434 76154 Information not available 12/07/2022 Have You Recently Traveled Abroad? No MIGRATION.31917 08309 Information not available 12/07/2022 Do You Have Any Dietary Restrictions? No MIGRATION.99979 91140 Information not available 12/07/2022 Do You Or Have You Ever Used Any Other Forms Of Tobacco Or Nicotine? No MIGRATION.05491 88519 Information not available 12/07/2022 Sex: Unknown Functional Status Question Answer Note LastModified by [employer] Details LastModified Time Do you have difficulty walking or climbing stairs? No MIGRATION.6456912 026 Information not available 12/07/2022 Do you have transportation difficulties? No MIGRATION.9294416 026 Information not available 12/07/2022 Are you able to walk? YESWOREST MIGRATION.5917769 026 Information not available 12/07/2022 Do you have difficulty doing errands alone? No MIGRATION.2450866 026 Information not available 12/07/2022 Are you able to care for yourself? Yes MIGRATION.8576031 026 Information not available 12/07/2022 Do you have difficulty dressing or bathing? No MIGRATION.9967682 026 Information not available 12/07/2022 What is your exercise level? Moderate MIGRATION.6160937 026 Information not available 12/07/2022 Mental Status Question Answer Note LastModified by [employer] Details LastModified Time Do you have difficulty concentrating, remembering or making decisions? No MIGRATION.[id number] 6 Information not available 12/07/2022 Family History Relationship Description Onset Age of this Age Resolved Age Notes LastModified by Organization Details LastModified Time Father Heart disease MIGRATION.395 [id number] Not available 12/07/2022 04:43:07 Brother Heart disease MIGRATION.816 [id number] Not available 12/07/2022 04:43:07 Brother Malignant tumor of colon MIGRATION.630 [id number] Not available 12/07/2022 04:43:07 Maternal Grandfather Family history of malignant neoplasm MIGRATION.146 [id number] Not available 12/07/2022 04:43:07 Medical History Condition Response DIABETES, TYPE Y EYE PROBLEMS Y Gynecological History Statement/Question Response Date of Last Mammogram 08/30/2021 Date of Last Colonoscopy Date of LMP 02/06/2009 Most Recent Bone Density Sexually Active? N Menses Monthly N Date of Last Pap Current Control Method Hysterectom y Obstetrics History GPAL:G 4 P 0 0 0 3 Type Value Living 3 Total 4 Past Encounters Encounter ID Performer Location Encounter Start Date Encounter Closed Date Diagnosis/Indication Diagnosis SNOMED-CT Code Diagnosis ICD10 Code [id number] [facility] [address] [place] [address] 07/20/2021 00:00:00 08/07/2021 17:32:01 [id number] [facility] [address] [place] [address] 10/21/2021 00:00:00 11/08/2021 11:46:04 [id number] [facility] [address] [place] [address] 09/21/2022 00:00:00 10/06/2022 12:22:57 [id number] MALDONADO Parry [facility] [address] [place] [address] 01/18/2023 09:49:41 01/18/2023 10:24:40 Uncontrolled type 2 diabetes mellitus 260595410 E11.65 Hyperlipidemia 68067675 E78.5 Benign ess ential hypertension 4563171 I10 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 2976430314 04756 D35.02 Long-term drug therapy 192424155 Z79.899 Health Concerns Section Related Observation LastModified by Organization Detai ls LastModified Time None Recorded Concern Status LastModified by Organization Details LastModified Time None Recorded Advance Directives Directive N: Payers Encounter Date Sequence Insurance Name Policy Number Policy Carcamo Covered Member ID Carcamo Member ID Guarantor Name 01/18/2023 1 [facility] (MEDICARE REPLACEMENT/A DVANTAGE - PPO) [id number] Raphael Ospina [id number] Raphael Ospina Notes Date Note Type Note Provider Name and Address Organization Details Recorded Time 021 text/ht ml DiabetesReported bypatient.Control:usually well controlled; improved since last visit; normal range of home blood sugars (in the low 100s) Compliance:compliant with medications; compliant with follow-up visits; compliant with diet; compliant with home glucose monitoring Self Care:monitoring glucose Context:seeing eye doctor regularly; checking feet regularly Associated Symptoms:no weight gain; no weight loss; no dizziness; no sweats; no headaches; no confusion; no increased thirst; no increased appetite; no increased urination; no blurred vision; no numbness of feet; no calluses on feet; no fatigue; no blurred vision; no paresthesiasHyperlipidemiaReported bypatient.Control:usually well controlled; improving; at goal Compliance:compliant; compliant with diet; exercises Complications:no coronary artery disease; no peripheral artery disease; no cardiovascular diseaseHypertensionReported bypatient.Onset/Timing:better Self Care:not under emotional stress Associated Symptoms:no shortness of breath; no fatigue; no palpitations; no decline in exercise capacity; no snoring Not Available [employer] 08/07/2021 17:32:01 022 text/ht ml DiabetesReported bypatient.Control:usually well controlled; improved since last visit; normal range of home blood sugars (in the low 100s) Compliance:compliant with medications; compliant with follow-up visits; compliant with diet; compliant with home glucose monitoring Self Care:monitoring glucose Context:seeing eye doctor regularly; checking feet regularly Associated Symptoms:no weight gain; no weight loss; no dizziness; no sweats; no headaches; no confusion; no increased thirst; no increased appetite; no increased urination; no blurred vision; no numbness of feet; no calluses on feet; no fatigue; no blurred vision; no paresthesiasNotes:glucose was high in the hospital and the hospitalist did call provider to discuss this. pt has been noncompliant for years with medication despite recommendations.HyperlipidemiaReport ed bypatient.Control:usually well controlled; improving; at goal Compliance:compliant; compliant with diet; exercises Complications:no coronary artery disease; no peripheral artery disease; no cardiovascular diseaseHypertensionReported bypatient.Onset/Timing:better Self Care:not under emotional stress Associated Symptoms:no shortness of breath; no fatigue; no palpitations; no decline in exercise capacity; no snoring Not Available [employer] 11/08/2021 11:46:04 022 text/ht ml DiabetesReported bypatient.Duration:chronic Control:usually well controlled; improved since last visit; normal range of home blood sugars (in the low 100s); treated with diet and oral medications Compliance:compliant with medications; compliant with follow-up visits; compliant with diet; compliant with home glucose monitoring Self Care:monitoring glucose daily Context:seeing eye doctor regularly; checking feet regularly;side effects from medications;not taking aspirin daily Associated Symptoms:no weight gain; no weight loss; no dizziness; no sweats; no headaches; no confusion; no increased thirst; no increased appetite; no increased urination; no blurred vision; no numbness of feet; no calluses on feet; no fatigue; no blurred vision; no paresthesias Chronic Complications:hypertension: Yes; hyperlipidemia: YesHyperlipidemiaReported bypatient.Control:usually well controlled Compliance:compliant; compliant with diet;does not exercise Complications:no coronary artery disease; no peripheral artery disease; no cardiovascular disease Risk Factors:diabetes;hypertensionHyperte nsionReported bypatient.Duration:has noted for years Onset/Timing:better Alleviating Factors:medication Self Care:under emotional stress Associated Symptoms:no fatigue; no palpitations; no decline in exercise capacity; no snoring;shortness of breath Not Available [facility] 10/06/2022 12:22:57 023 text/ht ml DiabetesReported bypatient.Duration:chronic Control:usually poorly controlled; treated with diet and oral medications; Hemoglobin A1C has been 8-9 Compliance:had eye doctor visit in last year; had dietitian visit in last year; wears a medic alert bracelet or necklace; rapid-acting carbohydrate kept in car;noncompliant with medications;noncompliant with followup-visits;noncompliant with diet;has not had dietitian visit in last year;does not wear a medic alert bracelet or necklace;does not keep rapid-acting carbohydrate in car Self Care:monitoring glucose daily Context:seeing eye doctor regularly; checking feet regularly;not taking aspirin daily Associated Symptoms:no weight gain; no weight loss; no dizziness; no sweats; no headaches; no confusion; no increased thirst; no increased appetite; no increased urination; no blurred vision; no numbness of feet; no calluses on feet; no coronary artery disease; no kidney disease; no peripheral vascular disease; no diabetic retinopathy; no diabetic neuropathyHyperlipidemiaReported bypatient.Duration:chronic Control:usually well controlled Compliance:compliant; compliant with diet; exercises Complications:no coronary artery disease; no peripheral artery disease; no cardiovascular disease Risk Factors:diabetes;hypertensionHyperte nsionReported bypatient.Duration:has noted for years Onset/Timing:better Alleviating Factors:medication Associated Symptoms:no shortness of breath; no palpitations; no decline in exercise capacity; no snoring;fatigue MALDONADO Parry [address] [facility], [facility] [address], [place], [address], [facility] 02/04/2023 16:50:44 OBGyn Episode No OBEpisode recorded.
--- OUTSIDE RECORDS SUMMARY | 2024-09-20 13:20 | XMS_ITS | Continuity of Care Document ---
Author Organization [facility] Address [address] [place] [address] [place] [address] Phone Care Team Providers Care Lens Cementer Name Role Phone Renato Crowder DO Unavailable Unavailable Advance Directives Directive Yes / No Effective Date File Name No Information Encounters Encounter Description Practice Location Reason(s) For Visit Diagnoses Date Provider Providers Copied on Encounter [facility], [address] [place] [address] [address], [place], [place], [id number], [place] tel:[phone] [facility] No Information Lakesha Benton. [address] [place], [address], [place]. tel: [phone] Family History Family Member Type Diagnosis Age At Onset No Information Payers Payer name Insurance type Covered alliance party ID Authoriza tion(s) No Information Social History Type Description Quantity Date Captured Comments Sex Female Smoking Status No Information Chief Complaint And Reason For Visit No Information Reason For Referral Reason For Referral No Information History Of Present Illness Encounter Date Complaint History Of Prese nt Illness No Information Functional Status Date Functional Assessmen t No Information Instructions Date Instruction Additional Infor mation No Information Assessments Type Assessment Date No Information Patient Care Teams Name Effective Dates (start - stop) Status Members No Information
[2024-09-20 13:51] VITALS: BP 185/91; PULSE 87; RESP 18; TEMP 36.6; O2SAT 95
--- NOTE | 2024-09-20 13:55 | ED_ITS ---
HPI - Recheck/Abnormal Lab/Rx General Chief Complaint: Recheck/Abnormal Lab/Rx Stated Complaint: htn Time Seen by Provider: 09/20/24 13:54 Focused HPI: This is a 74-year-old female with PMH of hypertension, T2DM who presents to the ED for concerns over elevated blood pressures. Symptomatic with headaches over the last few days. Was told by family members to come to the ER due to blood pressure being over 200. Denies chest pain, LOC, numbness, weakness, dyspnea. GENERAL: Well-appearing, well-nourished, and in no acute distress. HEAD: Normocephalic, atraumatic. CHEST: Clear to auscultation. No respiratory distress. HEART: Regular rate and rhythm. NEURO: Alert and oriented x3. Patient screened in triage and initial orders placed. Additional care and disposition to be based upon diagnostic testing and treatment. Source: patient Mode of arrival: ambulatory Limitations: no limitations Related Data Home Medications ?Medication ?Instructions ?Recorded ?Confirmed ?Last Taken ?Type metformin 1,000 mg tablet 1,000 mg PO BID 09/15/21 09/15/21 Unknown History olmesartan 40 1 tablet PO DAILY 09/15/21 09/15/21 Unknown History mg-hydrochlorothiazide 12.5 mg tablet Allergies Allergy/AdvReac Type Severity Reaction Status Date / Time Sulfa (Sulfonamide Allergy Unknown Itching Verified 11/02/21 11:33 Antibiotics) SULFAMETHOXAZOLE (Generic Allergy Unknown Y Uncoded 08/05/19 13:43 Allergy) Review of Systems 2 Review of Systems: All systems as dictated in HPI PMFSH Past Medical History Medical History Diabetes mellitus History of diabetes mellitus History of hypertension Hypertension Surgical History Surgical History H/O: hysterectomy Hx of cholecystectomy Family History Family History Sibling Carcinoma of colon Father Family history of heart disease in male family member before age 55 Grandparent Family history of heart disease in male family member before age 55 Social History Social History Social History: The patient lives with her . Her daughter and son-in-law are currently living with them as well. Her is the durable power workers compensation defense attorney for healthcare. She has 3 children. 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 She is a lifelong nonsmoker. She does not use any alcohol marijuana illicit drugs. Code status full code Alcohol intake: never Substance use: never Substance use type: marijuana Other substance usage details: medical marijuana card Spiritual care concerns: No Exam 2 Narrative: GENERAL: Well-appearing, well-nourished, and in no acute distress. HEAD: Normocephalic, atraumatic. EYES: PERRLA and EOMI. ENT: Nares clear, no rhinorrhea or epistaxis. Mucous membranes moist. Oropharynx without tonsillar hypertrophy exudate or other lesions. NECK: Supple. No adenopathy or masses. CHEST: No respiratory distress. Clear to auscultation. No wheezes rales or rhonchi HEART: Regular rate and rhythm. No murmur heard. Normal peripheral pulses. ABDOMEN: Soft, nontender, nondistended, normal active bowel sounds. MSK: Normal range of motion. No edema. SKIN: Warm, dry, no rash. NEURO: Alert and oriented x4. No focal deficits. PSYCH: Normal mood and affect. Course Vital Signs Vital signs: Vital Signs Temperature 97.8 F 09/20/24 13:51 Pulse Rate 87 09/20/24 13:51 Respiratory Rate 18 09/20/24 13:51 Blood Pressure 185/91 H 09/20/24 13:51 Pulse Oximetry 95 09/20/24 13:51 Temperature 97.8 F 09/20/24 13:51 Pulse Rate 87 09/20/24 13:51 Respiratory Rate 18 09/20/24 13:51 Blood Pressure 185/91 H 09/20/24 13:51 Pulse Oximetry 95 09/20/24 13:51 MDM - Recheck/Abnormal Lab/Rx MDM Narrative Medical decision making narrative: This is a 74-year-old female who presents to the ED for asymptomatic hypertension. Vitals show elevated blood pressure in the 180/90 range.. Exam is unremarkable. Patient is feeling well but was told to come to the ER due to having elevated blood pressures. She has been very stressed and anxious with her having recent cancer diagnosis. Lab work is unremarkable. EKG shows sinus rhythm with a LBBB. The LBBB is old compared to EKG in 2020. Patient remains asymptomatic on re-evaluation. She was able to contact her PCP use states that she was supposed to be taking her amlodipine which she has been for quite some time. She has had some feelings of anxiety at home with life stressors so hydroxyzine was prescribed for as needed anxiety relief. Patient will be discharged in stable condition. Supportive measures discussed and return precautions given. Patient is understanding and agreeable with plan for discharge with PCP follow-up. Lab Data 09/20/24 14:23 09/20/24 14:23 Labs: Lab Results 09/20/24 Range/Units 14:23 WBC 8.2 (4.5-10.0) K/mm3 RBC 4.48 (4.2-5.4) M/mm3 Hgb 14.2 (12.0-15.0) g/dL Hct 41.5 (37.0-47.0) % MCV 92.6 (80-100) fl MCH 31.7 (26-34) pg MCHC 34.2 (32-36) g/dl RDW 12.0 (11.5-14.5) % Plt Count 168 (150-375) k/mm3 MPV 11.3 H (7.4-10.4) fl Immature Gran % (Auto) 0.2 (0-0.5) % Neut % (Auto) 67.2 (45.5-73.1) % Lymph % (Auto) 24.1 (18.3-44.2) % [place] % (Auto) 5.3 (2.6-8.5) % Eos % (Auto) 2.8 (0-4.4) % Baso % (Auto) 0.4 (0.2-1.2) % Lymph # (Auto) 1.97 (0.9-3.2) K/mm3 [place] # (Auto) 0.4 (0.1-0.6) K/mm3 Eos # (Auto) 0.2 (0-0.3) K/mm3 Baso # (Auto) 0.0 (0.0-0.1) K/mm3 Abs Immat Gran (auto) 0.02 (0.00-0.031) K/mm3 Absolute Neuts (auto) 5.5 (1.3-6.7) K/mm3 Absolute Nucleated RBC 0.000 (0.0-0.012) K/mm3 Nucleated RBC % 0.0 (0.0-0.2) % Sodium 139 (137-145) mmol/L Potassium 4.1 (3.4-5.0) mmol/L Chloride 106 (98-107) mmol/L Carbon Dioxide 26 (22-30) mmol/L Anion Gap 7 (4-12) mmol/L BUN 18 H (7-17) mg/dL Creatinine 0.90 (0.7-1.0) mg/dL Estim Creat Clear Calc 60 ml/min Estimated GFR > 60 (59 - ) Glucose 165 H (65-110) mg/dL Calcium 9.8 (8.4-10.2) mg/dL Discharge Plan Discharge Clinical Impression: Asymptomatic hypertension Patient Disposition: Home, Self-Care Condition: Stable Instructions: Antibiotic Form Patient Language: Mauritanian Prescriptions: New hydroxyzine HCl 25 mg tablet 25 mg PO TID PRN (Reason: anxiety) Qty: 30 0RF No Action metformin 1,000 mg tablet 1,000 mg PO BID olmesartan-hydrochlorothiazide 40-12.5 mg tablet 1 tablet PO DAILY Follow-up/Referrals: UNKNOWN,DOCTOR [Primary Care Provider] - Time of Disposition: 14:57
--- NOTE | 2024-09-20 13:56 | ECG_ITS ---
Test Date: 2024-09-20 14:16:57 Measurements Intervals [place] Rate: 81 P: 29 IN: 167 QRS: -56 QRSD: 134 T: 73 QT: 425 QTc: 495 Interpretive Statements SINUS RHYTHM POSSIBLE LEFT ATRIAL ENLARGEMENT [-0.1mV P WAVE IN V1/V2] MARKED LEFT AXIS DEVIATION [QRS AXIS < -30] LEFT BUNDLE BRANCH BLOCK [120+ ms QRS DURATION, 80+ ms Q/S IN V1/V2, 85+ ms R IN I/aVL/V5/V6] No previous ECG available for comparison Electronically Signed On 09-20-2024 18:46:01 RADIOTELEGRAPHIST by Sabra Gunter M.D.
--- OUTSIDE RECORDS SUMMARY | 2024-09-20 14:08 | XMS_ITS | Continuity of Care Document ---
Author Organization [facility] Address [id number] [place] [address] [place] [address] Phone Care Team Providers Care Cash Application Clerk Name Role Phone Renato Crowder DO Unavailable Unavailable Advance Directives Directive Yes / No Effective Date File Name No Information Encounters Encounter Description Practice Location Reason(s) For Visit Diagnoses Date Provider Providers Copied on Encounter [facility], [id number] [place] [address] [address], [place], [place], [id number], [place] tel:[phone] [facility] No Information Lakesha Benton. [address] [place], [address], [place]. tel: [phone] Family History Family Member Type Diagnosis Age At Onset No Information Payers Payer name Insurance type Covered constitution party ID Authoriza tion(s) No Information Social [...]
[2024-09-20 14:33] LABS: Basophils Percent Auto 0.4 % (0.2-1.2); Eosinophils Absolute Auto 0.2 K/mm3 (0-0.3); Eosinophils Percent Auto 2.8 % (0-4.4); Hematocrit 41.5 % (37.0-47.0); Hemoglobin 14.2 g/dL (12.0-15.0); Immature Granulocyte Absolute 0.02 K/mm3 (0.00-0.031); Immature Granulocyte Percent A 0.2 % (0-0.5); Lymphocytes Absolute Auto 1.97 K/mm3 (0.9-3.2); Lymphocytes Percent Auto 24.1 % (18.3-44.2); Mean Corpuscular HGB Conc 34.2 g/dl (32-36); Mean Corpuscular Hemoglobin 31.7 pg (26-34); Mean Corpuscular Volume 92.6 fl (80-100); Mean Platelet Volume 11.3 fl (7.4-10.4); Monocytes Absolute Auto 0.4 K/mm3 (0.1-0.6); Monocytes Percent Auto 5.3 % (2.6-8.5); Neutrophils Absolute Auto 5.5 K/mm3 (1.3-6.7); Neutrophils Percent Auto 67.2 % (45.5-73.1); Platelet Count Result 168 k/mm3 (150-375); Red Blood Count 4.48 M/mm3 (4.2-5.4); White Blood Count 8.2 K/mm3 (4.5-10.0)
[2024-09-20 14:45] LABS: Anion Gap 7 mmol/L (4-12); Blood Urea Nitrogen 18 mg/dL (7-17); Calcium 9.8 mg/dL (8.4-10.2); Carbon Dioxide 26 mmol/L (22-30); Chloride 106 mmol/L (98-107); Estimated CRCL calculation 60 ml/min; Estimated Glomerular Filt Rate > 60; Glucose 165 mg/dL (65-110); Potassium 4.1 mmol/L (3.4-5.0); Sodium 139 mmol/L (137-145)
== END 2024-09-20 15:06 | disposition home or self-care (01) ==
PROVIDERS: Emergency Provider Physician Assistant
DX: I10 Essential (primary) hypertension (principal); E11.9 Type 2 diabetes mellitus without complications; Z90.710 Acquired absence of both cervix and uterus; Z90.49 Acquired absence of other specified parts of digestive tract; Z79.84 Long term (current) use of oral hypoglycemic drugs; I44.7 Left bundle-branch block, unspecified; R94.31 Abnormal electrocardiogram [ECG] [EKG]
CPT/HCPCS: 36415; 80048; 85025; 93005; 99283